=== PATIENT | male | born 1945 | race Caucasian/White ===

== ENCOUNTER 2020-12-07 13:20 | Inpatient (IN) | payer MEDICARE, BC ==
[2020-12-07] MEDS ORDERED: Sodium Chloride 0.9% 10 ML Syringe FLUSH PRN (14:23)
[2020-12-07] MEDS ORDERED: Sodium Chloride 0.9% 1,000 ML IV ONE ×2 (14:23→16:54)
--- NOTE | 2020-12-07 14:25 | EDM.PDOC ---
ED HPI GENERAL MEDICAL PROBLEM - General Chief Complaint: Possible Sepsis Stated Complaint: URINATION URGENCY/RETENTION Time Seen by Provider: 12/07/20 14:10 Source of Information: Reports: Patient History Limitations: Reports: No Limitations - History of Present Illness INITIAL COMMENTS - FREE TEXT/NARRATIVE: 75 YO WM WITH PMH OF METASTATIC PANCREATIC CA WHO RECEIVED CHEMO 3 DAYS AGO PRESENTS TO ER WITH URINARY RETENTION X 2 DAYS. PT REPORTS IT BEGAN WITH DECREASED FLOW AND NOW HE IS UNABLE TO GO ON HIS OWN. INITIAL BLADDER SCAN SHOWED GREATER THAN 600CC IN BLADDER. [facility] CATH WAS PLACED FOR HIS DISCOMFORT AND PATIENT STATES HE FEELS MUCH BETTER. OF NOTE, PT HAD A BP OF 80s/50s UPON ARRIVAL. PT REPORTS FEELING LIGHTHEADED. PT DENIES ANY FEVER/CHILLS, SHORTNESS OF BREATH, NO CHEST PAIN, NO NAUSEA/VOMITING/DIARRHEA. PT DENIES ANY DISCOMFORT- NO HEADACHE OR NECK PAIN. PT APPEARS IN NAD. DAUGHTER STATES HER DAD WAS PRESCRIBED OXYCONTIN AND SHE IS CONCERNED HE MAY HAVE TAKEN TOO MUCH. PT ALERT WITHOUT EVIDENCE OF SOMNOLENCE OR OPIOID INTOXICATION. Duration: Day(s): (2) Location: Reports: Abdomen Severity: Moderate Improves with: Reports: Other ([facility] CATH) Worsens with: Reports: None Associated Symptoms: Reports: No Other Symptoms Lower Abdomen Pain Score (Numeric/FACES): 5 - Related Data Allergies Allergy/AdvReac Type Severity Reaction Status Date / Time No Known Drug Allergies Allergy Cannot Verified 12/07/20 16:12 Remember Home Meds: Home Meds Ascorbate Calcium [Vitamin C] 500 mg PO DAILY 12/10/15 [History] Aspirin 325 mg PO BEDTIME 12/10/15 [History] Lisinopril/Hydrochlorothiazide [Lisinopril-Hctz 20-12.5 mg Tab] 1 tab PO BEDTIME 12/10/15 [History] Allopurinol [Zyloprim] 300 mg PO BEDTIME 12/12/15 [History] Fish Oil/[place]-3 Fatty Acids [Fish Oil 1,000 MG] 1 gm PO DAILY cap 12/12/15 [Rx] Simvastatin [Zocor] 20 mg PO BEDTIME #30 tablet 12/12/15 [Rx] metFORMIN [Glucophage] 500 mg PO BIDMEALS #60 tablet 12/12/15 [Rx] Past Medical History HEENT History: Reports: Impaired Vision Cardiovascular History: Reports: Hypertension Gastrointestinal History: Reports: Hiatal Hernia Endocrine/Metabolic History: Reports: Diabetes, Type II, Obesity/BMI 30+ - Infectious Disease History Infectious Disease History: Reports: Chicken Pox, Measles, Mumps, Other (See Below) Other Infectious Disease History: West Nile 9 years ago. - Past Surgical History Musculoskeletal Surgical History: Reports: Knee Replacement Social & Family History - Family History HEENT: Reports: Other (See Below) Other HEENT Family History: Some cataract surgery. Cardiac: Reports: GA Endocrine/Metabolic: Reports: Diabetes, type II Oncologic: Reports: Pancreatic - Caffeine Use Caffeine Use: Reports: Coffee, Soda Caffeine Use Comment: 1 soda every other day. ED ROS GENERAL - Review of Systems Review Of Systems: See Below Constitutional: Reports: Malaise HEENT: Reports: No Symptoms Respiratory: Reports: No Symptoms Cardiovascular: Reports: No Symptoms Endocrine: Reports: No Symptoms GI/Abdominal: Reports: Abdominal Pain : Reports: Urgency, Urinary Retention Musculoskeletal: Reports: No Symptoms Skin: Reports: No Symptoms Neurological: Reports: Dizziness Psychiatric: Reports: No Symptoms Hematologic/Lymphatic: Reports: No Symptoms Immunologic: Reports: No Symptoms ED EXAM, SEPSIS - Physical Exam Exam: See Below Exam Limited By: No Limitations General Appearance: Alert, WD/WN, No Apparent Distress Throat/Mouth: Normal Inspection, Normal Lips, Normal Teeth, Normal Gums, Normal Oropharynx, Normal Voice, No Airway Compromise Head: Atraumatic, Normocephalic Neck: Normal Inspection, Supple, Non-Tender, Full Range of Motion Respiratory/Chest: No Respiratory Distress, Lungs Clear, Normal Breath Sounds, No Accessory Muscle Use, Chest Non-Tender Cardiovascular: Normal Peripheral Pulses, Regular Rate, Rhythm, No Edema, No Gallop, No JVD, No Murmur, No Rub GI/Abdominal Exam: Normal Bowel Sounds, Soft, Non-Tender, No Organomegaly, No Distention, No Abnormal Bruit, No Mass, Pelvis Stable Back: Normal Inspection, Full Range of Motion, NT Extremities: Normal Inspection, Normal Range of Motion, Non-Tender, No Pedal Edema, Normal Capillary Refill Neurological: Alert, Oriented, CN II-XII Intact, Normal Cognition, Normal Gait, No Motor/Sensory Deficits Psychiatric: Normal Affect, Normal Mood Skin: Warm, Dry, Intact, Normal Color, No Rash Course - Vital Signs Last Recorded V/S: Last Vital Signs Temp 98.3 F 12/07/20 13:30 Pulse 94 12/07/20 13:30 Resp 20 12/07/20 13:30 BP 87/54 L 12/07/20 15:38 Pulse Ox 90 L 12/07/20 13:30 - Orders/Labs/Meds Orders: Active Orders 24 hr Category Date Time Status Patient Status Manage Transfer [TRANSFER] Routine ADT 12/07/20 16:41 Active Patient Status [ADT] Routine ADT 12/07/20 16:42 Ordered Blood Pressure Mgt: Sepsis [RC] Q15MX2 Care 12/07/20 14:24 Active Cardiac Monitoring [RC] CONTINUOUS Care 12/07/20 14:24 Active Oxygen Therapy [RC] PRN Care 12/07/20 16:42 Ordered Up With Assistance [RC] ASDIRECTED Care 12/07/20 16:42 Ordered VTE/DVT Education [RC] PER UNIT ROUTINE Care 12/07/20 16:42 Ordered Vital Signs [RC] Q4H Care 12/07/20 16:42 Ordered Heart Healthy Diet [DIET] Diet 12/07/20 Dinner Ordered CULTURE BLOOD [BC] Stat Lab 12/07/20 15:00 Received CULTURE BLOOD [BC] Stat Lab 12/07/20 15:10 Received REFLEX LACTIC ACID YES OR NO [CHEM] Routine Lab 12/07/20 15:44 Received Sodium Chloride 0.9% [Saline Flush] Med 12/07/20 14:23 Active 10 ml FLUSH Q8HR PRN Vancomycin 1 gm Med 12/07/20 15:54 Active Sodium Chloride 0.9% [Normal Saline] 250 ml IV ONETIME Blood Culture x2 Reflex Set [OM.PC] Stat Oth 12/07/20 14:23 Ordered Saline Lock Insert [OM.PC] Stat Oth 12/07/20 14:23 Ordered Severe Sepsis Onset Time [OM.PC] Stat Oth 12/07/20 14:23 Ordered Resuscitation Status Routine Resus Stat 12/07/20 16:42 Ordered Medication Orders Vancomycin HCl 1 gm/ Sodium (Chloride) 250 mls @ 167 mls/hr IV ONETIME ONE Stop: 12/07/20 17:23 Sodium Chloride (Sodium Chloride 0.9% 10 Ml Syringe) 10 ml FLUSH Q8HR PRN PRN Reason: keep vein open Labs: Laboratory Tests 1012/07/20 12/07/20 Range/Units 14:00 14:00 14:10 WBC 3.56 L (5.00-10.00) 10^3/uL RBC 3.36 L (4.50-6.00) 10^6/uL Hgb 10.4 L (13.0-17.0) g/dL Hct 31.7 L (40.0-52.0) % MCV 94.3 H D (82.0-92.0) fL MCH 31.0 (27.0-31.0) pg MCHC 32.8 (32.0-36.0) g/dL RDW 14.6 H (11.5-14.5) % Plt Count 155 (150-400) 10^3/uL MPV 10.8 H (7.4-10.4) fL Immature Gran % (Auto) 0.3 (0.0-5.0) % Neut % (Auto) 49.1 L (50.0-70.0) % Lymph % (Auto) 37.4 (20.0-40.0) % Wilkes % (Auto) 9.6 H (2.0-8.0) % Eos % (Auto) 2.8 (1.0-3.0) % Baso % (Auto) 0.8 (0.0-1.0) % Neut # (Auto) 1.75 L (2.50-7.00) 10^3/uL Lymph # (Auto) 1.33 (1.00-4.00) 10^3/uL Wilkes # (Auto) 0.34 (0.10-0.80) 10^3/uL Eos # (Auto) 0.10 (0.10-0.30) 10^3/uL Baso # (Auto) 0.03 (0.00-0.10) 10^3/uL Immature Gran # (Auto) 0.01 (0.00-0.50) 10^3/uL Sodium 142 (136-145) mmol/L Potassium 3.9 (3.5-5.1) mmol/L Chloride 103 (98-107) mmol/L Carbon Dioxide 26.6 (21.0-32.0) mmol/L Anion Gap 16.3 H (5-15) mmol/L BUN 40 H (7-18) mg/dL Creatinine 1.26 H (0.51-1.17) mg/dL Est Cr Clr Drug Dosing TNP Estimated GFR (MDRD) 56 mL/min Glucose 104 (70-140) mg/dL Lactic Acid (0.4-2.0) mmol/L Calcium 8.8 (8.7-10.3) mg/dL Total Bilirubin 1.1 H (0.2-1.0) mg/dL AST 44 H (15-37) U/L ALT 42 (14-63) U/L Alkaline Phosphatase 186 H (46-116) U/L Total Protein 7.2 (6.4-8.2) g/dL Albumin 2.80 L (3.40-5.00) g/dL Specimen Type Urinfol Urine Color Yellow (YELLOW) Urine Appearance Slightly cloudy H (CLEAR) Urine pH 5.5 (5.0-9.0) Ur Specific [place] 1.020 (1.005-1.030) Urine Protein Trace H (NEGATIVE) mg/dL Urine Glucose (UA) Negative (NEGATIVE) mg/dL Urine Ketones Negative (NEGATIVE) mg/dL Urine Occult Blood Negative (NEGATIVE) Urine Nitrite Negative (NEGATIVE) Urine Bilirubin Negative (NEGATIVE) Urine Urobilinogen 0.2 (0.2-1.0) E.U./dL Ur Leukocyte Esterase Negative (NEGATIVE) U Hyaline Cast (Auto) Rare Urine RBC 0-5 (0-5) /HPF Urine WBC 0-5 (0-5) /HPF Ur Epithelial Cells Occasional /LPF Amorphous Sediment Occasional (0/HPF) /HPF Urine Bacteria Not seen (NONE TO FEW) /HPF SARS CoV-2 RNA Rapid JENNIFER (NEGATIVE) 12/07/20 12/07/20 Range/Units 15:00 15:50 WBC (5.00-10.00) 10^3/uL RBC (4.50-6.00) 10^6/uL Hgb (13.0-17.0) g/dL Hct (40.0-52.0) % MCV (82.0-92.0) fL MCH (27.0-31.0) pg MCHC (32.0-36.0) g/dL RDW (11.5-14.5) % Plt Count (150-400) 10^3/uL MPV (7.4-10.4) fL Immature Gran % (Auto) (0.0-5.0) % Neut % (Auto) (50.0-70.0) % Lymph % (Auto) (20.0-40.0) % Wilkes % (Auto) (2.0-8.0) % Eos % (Auto) (1.0-3.0) % Baso % (Auto) (0.0-1.0) % Neut # (Auto) (2.50-7.00) 10^3/uL Lymph # (Auto) (1.00-4.00) 10^3/uL Wilkes # (Auto) (0.10-0.80) 10^3/uL Eos # (Auto) (0.10-0.30) 10^3/uL Baso # (Auto) (0.00-0.10) 10^3/uL Immature Gran # (Auto) (0.00-0.50) 10^3/uL Sodium (136-145) mmol/L Potassium (3.5-5.1) mmol/L Chloride (98-107) mmol/L Carbon Dioxide (21.0-32.0) mmol/L Anion Gap (5-15) mmol/L BUN (7-18) mg/dL Creatinine (0.51-1.17) mg/dL Est Cr Clr Drug Dosing Estimated GFR (MDRD) mL/min Glucose (70-140) mg/dL Lactic Acid 4.5 H (0.4-2.0) mmol/L Calcium (8.7-10.3) mg/dL Total Bilirubin (0.2-1.0) mg/dL AST (15-37) U/L ALT (14-63) U/L Alkaline Phosphatase (46-116) U/L Total Protein (6.4-8.2) g/dL Albumin (3.40-5.00) g/dL Specimen Type Urine Color (YELLOW) Urine Appearance (CLEAR) Urine pH (5.0-9.0) Ur Specific [place] (1.005-1.030) Urine Protein (NEGATIVE) mg/dL Urine Glucose (UA) (NEGATIVE) mg/dL Urine Ketones (NEGATIVE) mg/dL Urine Occult Blood (NEGATIVE) Urine Nitrite (NEGATIVE) Urine Bilirubin (NEGATIVE) Urine Urobilinogen (0.2-1.0) E.U./dL Ur Leukocyte Esterase (NEGATIVE) U Hyaline Cast (Auto) Urine RBC (0-5) /HPF Urine WBC (0-5) /HPF Ur Epithelial Cells /LPF Amorphous Sediment (0/HPF) /HPF Urine Bacteria (NONE TO FEW) /HPF SARS CoV-2 RNA Rapid JENNIFER Negative (NEGATIVE) Meds: Medications Generic Name Dose Route Start Last Admin Trade Name Freq PRN Reason Stop Dose Admin Vancomycin HCl 1 gm/ Sodium 250 mls @ 167 mls/hr 12/07/20 15:54 Chloride IV 12/07/20 17:23 ONETIME ONE Sodium Chloride 10 ml 12/07/20 14:23 Sodium Chloride 0.9% 10 Ml Syringe FLUSH Q8HR PRN keep vein open Discontinued Medications Generic Name Dose Route Start Last Admin Trade Name Freq PRN Reason Stop Dose Admin Ceftriaxone Sodium 2 gm 12/07/20 15:54 Ceftriaxone 2 Gm Vial IVPUSH 12/07/20 15:55 ONETIME ONE Sodium Chloride 1,000 mls @ 1,000 mls/hr 12/07/20 14:23 12/07/20 14:45 Normal Saline IV 12/07/20 15:22 1,000 mls/hr BOLUS ONE Administration Protocol Sodium Chloride Confirm 12/07/20 16:37 12/07/20 16:41 Normal Saline Administered 12/07/20 16:38 Not Given Dose 100 mls @ as directed .ROUTE .STK-MED ONE Sodium Chloride Confirm 12/07/20 16:38 12/07/20 16:39 Normal Saline Administered 12/07/20 16:39 Not Given Dose 1,000 mls @ as directed .ROUTE .STK-MED ONE - Radiology Interpretation Free Text/Narrative:: CXR- NAD Departure - Departure Time of Disposition: 16:43 Disposition: Admitted As Inpatient 66 Condition: Serious Clinical Impression: Hypotension, Urinary retention, Sepsis associated hypotension - Discharge Information Referrals: Kristy Kraft NP [Primary Care Provider] - Forms: ED Department Discharge Sepsis Event Note (ED) - Focused Exam Vital Signs: Vital Signs Temp Pulse Resp BP Pulse Ox 12/07/20 15:38 87/54 L 12/07/20 13:30 98.3 F 94 20 87/54 L 90 L - My Orders Last 24 Hours: My Active Orders 12/07/20 14:23 Sodium Chloride 0.9% [Saline Flush] 10 ml FLUSH Q8HR PRN Blood Culture x2 Reflex Set [OM.PC] Stat Saline Lock Insert [OM.PC] Stat Severe Sepsis Onset Time [OM.PC] Stat 12/07/20 14:24 Blood Pressure Mgt: Sepsis [RC] Q15MX2 Cardiac Monitoring [RC] CONTINUOUS 12/07/20 15:00 CULTURE BLOOD [BC] Stat 12/07/20 15:10 CULTURE BLOOD [BC] Stat 12/07/20 15:44 REFLEX LACTIC ACID YES OR NO [CHEM] Routine 12/07/20 15:54 Vancomycin 1 gm Sodium Chloride 0.9% [Normal Saline] 250 ml IV ONETIME 12/07/20 16:41 Patient Status Manage Transfer [TRANSFER] Routine 12/07/20 16:42 Patient Status [ADT] Routine Oxygen Therapy [RC] PRN Up With Assistance [RC] ASDIRECTED VTE/DVT Education [RC] PER UNIT ROUTINE Vital Signs [RC] Q4H Resuscitation Status Routine 12/07/20 Dinner Heart Healthy Diet [DIET] - Assessment/Plan Last 24 Hours: My Active Orders 12/07/20 14:23 Sodium Chloride 0.9% [Saline Flush] 10 ml FLUSH Q8HR PRN Blood Culture x2 Reflex Set [OM.PC] Stat Saline Lock Insert [OM.PC] Stat Severe Sepsis Onset Time [OM.PC] Stat 12/07/20 14:24 Blood Pressure Mgt: Sepsis [RC] Q15MX2 Cardiac Monitoring [RC] CONTINUOUS 12/07/20 15:00 CULTURE BLOOD [BC] Stat 12/07/20 15:10 CULTURE BLOOD [BC] Stat 12/07/20 15:44 REFLEX LACTIC ACID YES OR NO [CHEM] Routine 12/07/20 15:54 Vancomycin 1 gm Sodium Chloride 0.9% [Normal Saline] 250 ml IV ONETIME 12/07/20 16:41 Patient Status Manage Transfer [TRANSFER] Routine 12/07/20 16:42 Patient Status [ADT] Routine Oxygen Therapy [RC] PRN Up With Assistance [RC] ASDIRECTED VTE/DVT Education [RC] PER UNIT ROUTINE Vital Signs [RC] Q4H Resuscitation Status Routine 12/07/20 Dinner Heart Healthy Diet [DIET] Assessment:: 1. URINARY RETENTION 2. HYPOTENSION IN AN IMMUNOCOMPROMISED PATIENT 3. ELEVATED LACTIC ACID- RULE OUT BACTEREMIA Plan: ADMIT TO MEDICINE- [facility] ACCEPTED @ CONTINUE AGGRESSIVE IVF HYDRATION ROCEPHIN/VANCOMYCIN NOW SUPPORTIVE CARE ADDITIONAL ORDERS PER MEDICINE
--- NOTE | 2020-12-07 15:00 | CR ---
[id number] RAD/RAD Chest PA or AP 1V EXAM: RAD Chest PA or AP 1V INDICATION: SEPSIS. COMPARISON: December 10, 2015. DISCUSSION: Right chest wall Mediport. Cardiomediastinal silhouette is normal in size and contour. No infiltrate, effusion, pneumothorax, or edema. Low lung volumes associated vascular crowding. Degenerative changes of the shoulders bilaterally. IMPRESSION: No acute cardiopulmonary abnormality. Guzman Hampton DO 12/07/20 [id number] Thank you for allowing us to participate in the care of your patient.
[2020-12-07 15:03] LABS: ANION GAP 16.3 mmol/L (5-15); CHLORIDE,CL 103 mmol/L (98-107); SODIUM,NA 142 mmol/L (136-145)
[2020-12-07] MEDS ORDERED: cefTRIAXone 2 GM Vial IVPUSH ONE (15:54)
[2020-12-07] MEDS ORDERED: Sodium Chloride 0.9% 100 ML ONE (16:37)
[2020-12-07] MEDS ORDERED: Sodium Chloride 0.9% 1,000 ML ONE (16:38)
--- NOTE | 2020-12-07 17:22 | PCM.HP.2 ---
H&P History of Present Illness - General Date of Service: 12/07/20 Admit Problem/Dx: Admission Diagnosis/Problem Admission Diagnosis/Problem Sepsis - History of Present Illness Initial Comments - Free Text/Narative: 75 year old male presents with ten days of urinary hesitancy that worsened over the last couple of days to where he was unable to void. Lower Abdomen Pain Score (Numeric/FACES): 5 - Related Data Allergies/Adverse Reactions: Allergies Allergy/AdvReac Type Severity Reaction Status Date / Time No Known Drug Allergies Allergy Cannot Verified 12/07/20 16:12 Remember Home Medications: Home Meds Ascorbate Calcium [Vitamin C] 500 mg PO DAILY 12/10/15 [History] Aspirin 325 mg PO BEDTIME 12/10/15 [History] Lisinopril/Hydrochlorothiazide [Lisinopril-Hctz 20-12.5 mg Tab] 1 tab PO BEDTIME 12/10/15 [History] Allopurinol [Zyloprim] 300 mg PO BEDTIME 12/12/15 [History] Fish Oil/Lodge-3 Fatty Acids [Fish Oil 1,000 MG] 1 gm PO DAILY cap 12/12/15 [Rx] Simvastatin [Zocor] 20 mg PO BEDTIME #30 tablet 12/12/15 [Rx] metFORMIN [Glucophage] 500 mg PO BIDMEALS #60 tablet 12/12/15 [Rx] Past Medical History HEENT History: Reports: Impaired Vision Cardiovascular History: Reports: Hypertension Gastrointestinal History: Reports: Hiatal Hernia Genitourinary History: Reports: BPH Endocrine/Metabolic History: Reports: Diabetes, Type II - Infectious Disease History Infectious Disease History: Reports: Chicken Pox, Measles, Mumps, Other (See Below) Other Infectious Disease History: West Nile 9 years ago. - Past Surgical History Musculoskeletal Surgical History: Reports: Knee Replacement Social & Family History - Family History HEENT: Reports: Other (See Below) Other HEENT Family History: Some cataract surgery. Cardiac: Reports: [place] Endocrine/Metabolic: Reports: Diabetes, type II Oncologic: Reports: Pancreatic - Tobacco Use Tobacco Use Status *Q: Never Tobacco User - Caffeine Use Caffeine Use: Reports: Coffee Caffeine Use Comment: 1 soda every other day. - Recreational Drug Use Recreational Drug Use: No H&P Review of Systems - Review of Systems: Review Of Systems: See Below General: Reports: Chills, Fatigue, Decreased Appetite, Weight Loss. Denies: Fever, Weakness HEENT: Denies: Dysphasia, Headaches, Sinus Congestion, Sore Throat, Visual Changes Pulmonary: Denies: Shortness of Breath, Wheezing, Cough Cardiovascular: Denies: Chest Pain, Palpitations, Edema, Lightheadedness Gastrointestinal: Reports: Abdominal Pain (suprapubic pain), Constipation (chronic, did have BM yesterday), Decreased Appetite. Denies: Bloody Stool, Diarrhea, Melena, Nausea, Vomiting Genitourinary: Reports: Frequency, Urgency, Retention. Denies: Incontinence, Hematuria Musculoskeletal: Denies: Neck Pain, Back Pain, Joint Pain, Joint Swelling Skin: Denies: Pallor, Dryness, Rash Psychiatric: Reports: Confusion ("brain fog"), Hallucinations (stated as feeling like someone is watching him since chemo). Denies: Depression, Anxiety Neurological: Reports: Confusion ("brain fog"), Dizziness (at times). Denies: Headache, Trouble Speaking, Difficulty Walking, Change in Speech, Gait Disturbance Exam - Exam Exam: See Below - Vital Signs Vital Signs: Last Vital Signs Temp 36.8 C 12/07/20 13:30 Pulse 88 12/07/20 16:50 Resp 20 12/07/20 16:50 BP 110/72 12/07/20 16:50 Pulse Ox 95 12/07/20 16:50 Weight: 91.626 kg - Exam Physical Exam Comments:: GENERAL: Well-appearing adult in no acute distress. HEENT: Normocephalic, atraumatic. Conjunctiva clear. Nares patent without discharge. Mucous membranes moist, posterior pharynx unremarkable. NECK: Supple, no masses. CV: Regular rate and irregular rhythm, 2+ systolic murmur, no rubs or gallops. 2+ radial pulses. PULMONARY: Normal effort, clear to auscultation bilaterally, no wheezes, rales, or rhonchi. ABDOMEN: Positive bowel sounds, soft, nontender, nondistended. Patient has pain when he leans forward in the suprapubic area EXTREMITIES: Trace RLE, 1+ LLE edema, no cyanosis or clubbing. MUSCULOSKELETAL: Moves all extremities well. NEUROLOGICAL: No obvious deficits. DERMATOLOGIC: No rashes or suspicious lesions in exposed areas. PSYCHIATRIC: Alert, interactive, appropriate affect. - Patient Data Lab Results Last 24 hrs: Laboratory Results - last 24 hr 12/07/20 12/07/20 12/07/20 Range/Units 14:00 14:00 14:10 WBC 3.56 L (5.00-10.00) 10^3/uL RBC 3.36 L (4.50-6.00) 10^6/uL Hgb 10.4 L (13.0-17.0) g/dL Hct 31.7 L (40.0-52.0) % MCV 94.3 H D (82.0-92.0) fL MCH 31.0 (27.0-31.0) pg MCHC 32.8 (32.0-36.0) g/dL RDW 14.6 H (11.5-14.5) % Plt Count 155 (150-400) 10^3/uL MPV 10.8 H (7.4-10.4) fL Immature Gran % (Auto) 0.3 (0.0-5.0) % Neut % (Auto) 49.1 L (50.0-70.0) % Lymph % (Auto) 37.4 (20.0-40.0) % [place] % (Auto) 9.6 H (2.0-8.0) % Eos % (Auto) 2.8 (1.0-3.0) % Baso % (Auto) 0.8 (0.0-1.0) % Neut # (Auto) 1.75 L (2.50-7.00) 10^3/uL Lymph # (Auto) 1.33 (1.00-4.00) 10^3/uL [place] # (Auto) 0.34 (0.10-0.80) 10^3/uL Eos # (Auto) 0.10 (0.10-0.30) 10^3/uL Baso # (Auto) 0.03 (0.00-0.10) 10^3/uL Immature Gran # (Auto) 0.01 (0.00-0.50) 10^3/uL Sodium 142 (136-145) mmol/L Potassium 3.9 (3.5-5.1) mmol/L Chloride 103 (98-107) mmol/L Carbon Dioxide 26.6 (21.0-32.0) mmol/L Anion Gap 16.3 H (5-15) mmol/L BUN 40 H (7-18) mg/dL Creatinine 1.26 H (0.51-1.17) mg/dL Est Cr Clr Drug Dosing TNP Estimated GFR (MDRD) 56 mL/min Glucose 104 (70-140) mg/dL Lactic Acid (0.4-2.0) mmol/L Calcium 8.8 (8.7-10.3) mg/dL Total Bilirubin 1.1 H (0.2-1.0) mg/dL AST 44 H (15-37) U/L ALT 42 (14-63) U/L Alkaline Phosphatase 186 H (46-116) U/L Total Protein 7.2 (6.4-8.2) g/dL Albumin 2.80 L (3.40-5.00) g/dL Specimen Type Urinfol Urine Color Yellow (YELLOW) Urine Appearance Slightly cloudy H (CLEAR) Urine pH 5.5 (5.0-9.0) Ur Specific [place] 1.020 (1.005-1.030) Urine Protein Trace H (NEGATIVE) mg/dL Urine Glucose (UA) Negative (NEGATIVE) mg/dL Urine Ketones Negative (NEGATIVE) mg/dL Urine Occult Blood Negative (NEGATIVE) Urine Nitrite Negative (NEGATIVE) Urine Bilirubin Negative (NEGATIVE) Urine Urobilinogen 0.2 (0.2-1.0) E.U./dL Ur Leukocyte Esterase Negative (NEGATIVE) U Hyaline Cast (Auto) Rare Urine RBC 0-5 (0-5) /HPF Urine WBC 0-5 (0-5) /HPF Ur Epithelial Cells Occasional /LPF Amorphous Sediment Occasional (0/HPF) /HPF Urine Bacteria Not seen (NONE TO FEW) /HPF SARS CoV-2 RNA Rapid JENNIFER (NEGATIVE) 12/07/20 12/07/20 Range/Units 15:00 15:50 WBC (5.00-10.00) 10^3/uL RBC (4.50-6.00) 10^6/uL Hgb (13.0-17.0) g/dL Hct (40.0-52.0) % MCV (82.0-92.0) fL MCH (27.0-31.0) pg MCHC (32.0-36.0) g/dL RDW (11.5-14.5) % Plt Count (150-400) 10^3/uL MPV (7.4-10.4) fL Immature Gran % (Auto) (0.0-5.0) % Neut % (Auto) (50.0-70.0) % Lymph % (Auto) (20.0-40.0) % [place] % (Auto) (2.0-8.0) % Eos % (Auto) (1.0-3.0) % Baso % (Auto) (0.0-1.0) % Neut # (Auto) (2.50-7.00) 10^3/uL Lymph # (Auto) (1.00-4.00) 10^3/uL [place] # (Auto) (0.10-0.80) 10^3/uL Eos # (Auto) (0.10-0.30) 10^3/uL Baso # (Auto) (0.00-0.10) 10^3/uL Immature Gran # (Auto) (0.00-0.50) 10^3/uL Sodium (136-145) mmol/L Potassium (3.5-5.1) mmol/L Chloride (98-107) mmol/L Carbon Dioxide (21.0-32.0) mmol/L Anion Gap (5-15) mmol/L BUN (7-18) mg/dL Creatinine (0.51-1.17) mg/dL Est Cr Clr Drug Dosing Estimated GFR (MDRD) mL/min Glucose (70-140) mg/dL Lactic Acid 4.5 H (0.4-2.0) mmol/L Calcium (8.7-10.3) mg/dL Total Bilirubin (0.2-1.0) mg/dL AST (15-37) U/L ALT (14-63) U/L Alkaline Phosphatase (46-116) U/L Total Protein (6.4-8.2) g/dL Albumin (3.40-5.00) g/dL Specimen Type Urine Color (YELLOW) Urine Appearance (CLEAR) Urine pH (5.0-9.0) Ur Specific [place] (1.005-1.030) Urine Protein (NEGATIVE) mg/dL Urine Glucose (UA) (NEGATIVE) mg/dL Urine Ketones (NEGATIVE) mg/dL Urine Occult Blood (NEGATIVE) Urine Nitrite (NEGATIVE) Urine Bilirubin (NEGATIVE) Urine Urobilinogen (0.2-1.0) E.U./dL Ur Leukocyte Esterase (NEGATIVE) U Hyaline Cast (Auto) Urine RBC (0-5) /HPF Urine WBC (0-5) /HPF Ur Epithelial Cells /LPF Amorphous Sediment (0/HPF) /HPF Urine Bacteria (NONE TO FEW) /HPF SARS CoV-2 RNA Rapid JENNIFER Negative (NEGATIVE) Result Diagrams: 12/07/20 14:00 12/07/20 14:00 Sepsis Event Note - Evaluation Sepsis Screening Result: No Definite Risk - Focused Exam Vital Signs: Vital Signs Temp Pulse Resp BP Pulse Ox 12/07/20 16:50 88 20 110/72 95 12/07/20 15:38 87/54 L 12/07/20 13:30 36.8 C 94 20 87/54 L 90 L Problem List Initiated/Reviewed/Updated: Yes Orders Last 24hrs: Active Orders 24 hr Category Date Time Status Patient Status Manage Transfer [TRANSFER] Routine ADT 12/07/20 16:41 Active Patient Status [ADT] Routine ADT 12/07/20 16:42 Active Blood Pressure Mgt: Sepsis [RC] [id number] Care 12/07/20 14:24 Active Cardiac Monitoring [RC] CONTINUOUS Care 12/07/20 14:24 Active Oxygen Therapy [RC] PRN Care 12/07/20 16:42 Active Up With Assistance [RC] ASDIRECTED Care 12/07/20 16:42 Active VTE/DVT Education [RC] PER UNIT ROUTINE Care 12/07/20 16:42 Active Vital Signs [RC] Q4H Care 12/07/20 16:42 Active Heart Healthy Diet [DIET] Diet 12/07/20 Dinner Active CULTURE BLOOD [BC] Stat Lab 12/07/20 15:00 Received CULTURE BLOOD [BC] Stat Lab 12/07/20 15:10 Received REFLEX LACTIC ACID YES OR NO [CHEM] Routine Lab 12/07/20 15:44 Received Sodium Chloride 0.9% [Normal Saline] 1,000 ml Med 12/07/20 16:54 Active IV .BOLUS Sodium Chloride 0.9% [Saline Flush] Med 12/07/20 14:23 Active 10 ml FLUSH Q8HR PRN Vancomycin 1 gm Med 12/07/20 15:54 Active Sodium Chloride 0.9% [Normal Saline] 250 ml IV ONETIME Blood Culture x2 Reflex Set [OM.PC] Stat Oth 12/07/20 14:23 Ordered Saline Lock Insert [OM.PC] Stat Oth 12/07/20 14:23 Ordered Severe Sepsis Onset Time [OM.PC] Stat Oth 12/07/20 14:23 Ordered Resuscitation Status Routine Resus Stat 12/07/20 16:42 Ordered Medication Orders Vancomycin HCl 1 gm/ Sodium (Chloride) 250 mls @ 167 mls/hr IV ONETIME ONE Stop: 12/07/20 17:23 Sodium Chloride (Normal Saline) 1,000 mls @ 999 mls/hr IV .BOLUS ONE Stop: 12/07/20 17:54 Last Admin: 12/07/20 16:59 Dose: 999 mls/hr Documented by: FLORINDA Sodium Chloride (Sodium Chloride 0.9% 10 Ml Syringe) 10 ml FLUSH Q8HR PRN PRN Reason: keep vein open Assessment/Plan Comment:: HPI summary: 75 year old male admitted inpatient for possible sepsis after presenting to the ED via personal car with complaints of urinary retention for two days prior to presentation, patient reports symptoms have been present for approximately ten days but have worsened. Received chemo three days ago for metastatic CA without known source. Denies fever. Did have chills, but reports this a cold intolerance since chemo. Denies dyspnea, chest pain or N/V/D. He does have chronic constipation and he reports he took a powder with results yesterday (12/06/2020). Recent use of oxycodone and daughter reports patient may have taken too much, but patient did not appear somnolent in the ED, and daughter reports improvement since starting fluids. ED course: -VS: 98.3-94-20-87/54-90%/RA -Lab: WBC 3.56, RBC 3.36, Hgb 10.4, Hct 31.7, macrocytic, normochromic, neut 49.1% (L), mono 9.6% (H), plt 155, NA 142, K 3.9, Cl 103, anion gap 16.3, BUN 40, creatinine 1.26, gfr 56, Tbili 1.1, AST 44, ALT 42, alk phos 186, albumin 2.8 (L); COVID neg, lactic 4.5 -Urine: slightly cloudy, trace protein, neg blood, neg nitrites, rare hyaline casts, 0-5 RBC, 0-5 WBC, occ epithelial cells, occ amorphous sediment, no bacteria -CXR: neg -BCx2 -NS 1 liter bolus IV -Ceftriaxone 2gm IVP and Vancomycin IV Hospitalization problems and plan: # Hypotension - IVF NS 125mL/hr - hold lisinopril/ HCTZ - hold oxycodone for now # Elevated lactic acid, R/O bacteremia - Repeat lactic acid at 1900 - Vanco and ceftriaxone - Blood cultures and procalcitonin pending # Urinary retention - Christie catheter - I/O # Acute kidney injury, suspect prerenal cause with hypotension - hold metformin for now - IV hydration Chronic, stable conditions: # Essential hypertension, hold lisinopril/hctz # Non-ST elevation [place] (NSTEMI): no heart failure; last ECHO 04/2020 EF 65%, Normal LV systolic function, unable to assess for diastolic dysfunction; continue ASA # Moderate aortic stenosis # Hemispheric carotid artery syndrome # Hyperlipidemia, continue statin # TIA (transient ischemic attack) # Diabetes type 2, uncontrolled: start blood glucose checks and PRN low dose SS, hold metformin for now # 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
[2020-12-07] MEDS ORDERED: Glucagon,Human Recombinant 1 MG Vial IM PRN (18:43)
[2020-12-07] MEDS ORDERED: 50% Dextrose in Water 50 ML Syringe IVPUSH PRN (18:43)
[2020-12-07] MEDS: Acetaminophen 325 MG Tab PO PRN (19:49)
[2020-12-07] MEDS: Sodium Chloride 0.9% 1,000 ML IV SCH (20:16)
[2020-12-07] MEDS: Aspirin 325 MG Tab.EC PO SCH (20:18)
[2020-12-07] MEDS: Simvastatin 20 MG Tab PO SCH (20:18)
[2020-12-07] MEDS: Allopurinol 100 MG Tab PO SCH (20:18)
[2020-12-07] MEDS ORDERED: Atropine 0.1 MG/ML 10 ML Syringe IVPUSH PRN (20:26)
[2020-12-07] MEDS ORDERED: Nitroglycerin 0.4 MG Tab.SL SL PRN (20:26)
[2020-12-07] MEDS ORDERED: EPINEPHrine 1:10,000 1 MG/10 ML Syringe IVPUSH PRN (20:26)
[2020-12-07] MEDS ORDERED: Lidocaine 2% 100 MG/5 ML Syringe IVPUSH PRN (20:26)
[2020-12-07] MEDS: Insulin Aspart 100 Units/ML 3 ML Pen SUBCUT SCH (21:29)
[2020-12-08] MEDS: Acetaminophen 325 MG Tab PO PRN ×4 (02:33→21:29)
[2020-12-08] MEDS: Sodium Chloride 0.9% 1,000 ML IV SCH ×3 (04:13→22:25)
[2020-12-08] MEDS: Insulin Aspart 100 Units/ML 3 ML Pen SUBCUT SCH ×4 (08:04→21:27)
[2020-12-08] MEDS: Ascorbic Acid 500 MG Tab PO SCH (09:31)
--- NOTE | 2020-12-08 11:34 | PCM.PN ---
- General Info Date of Service: 12/08/20 Functional Status: Reports: Tolerating Diet, Urinating, New Symptoms (bladder spasms from carmona catheter). Denies: Pain Controlled - Review of Systems General: Reports: Chills (since starting chemo). Denies: Fever, Fatigue HEENT: Reports: No Symptoms Pulmonary: Reports: No Symptoms. Denies: Shortness of Breath, Cough Cardiovascular: Reports: No Symptoms Gastrointestinal: Reports: Constipation (took miralax tuesday), Diarrhea (reports 3 loose stools since yesterday afternoon ) Genitourinary: Reports: Retention (prior to placing carmona - symptoms worse over the weekend before came to ER ), Other (bladder spasms with carmona). Denies: Dysuria Musculoskeletal: Reports: No Symptoms Skin: Reports: No Symptoms Neurological: Reports: Tingling (of the fingertips at times since starting chemo) Psychiatric: Reports: No Symptoms - Patient Data Vitals - Most Recent: Last Vital Signs Temp 96.7 F L 12/08/20 06:38 Pulse 81 12/08/20 06:38 Resp 20 12/08/20 06:38 BP 132/72 12/08/20 06:38 Pulse Ox 96 12/08/20 06:38 Weight - Most Recent: 208 lb 7 oz I&O - Last 24 Hours: Intake & Output 12/07/20 12/08/20 12/08/20 22:59 06:59 14:59 Intake Total 2699 1230 Output Total 1000 1000 Balance 1699 230 Lab Results Last 24 Hours: Laboratory Results - last 24 hr 12/07/20 12/07/20 12/07/20 Range/Units 14:00 14:00 14:10 WBC 3.56 L (5.00-10.00) 10^3/uL RBC 3.36 L (4.50-6.00) 10^6/uL Hgb 10.4 L (13.0-17.0) g/dL Hct 31.7 L (40.0-52.0) % MCV 94.3 H D (82.0-92.0) fL MCH 31.0 (27.0-31.0) pg MCHC 32.8 (32.0-36.0) g/dL RDW 14.6 H (11.5-14.5) % Plt Count 155 (150-400) 10^3/uL MPV 10.8 H (7.4-10.4) fL Immature Gran % (Auto) 0.3 (0.0-5.0) % Neut % (Auto) 49.1 L (50.0-70.0) % Lymph % (Auto) 37.4 (20.0-40.0) % [place] % (Auto) 9.6 H (2.0-8.0) % Eos % (Auto) 2.8 (1.0-3.0) % Baso % (Auto) 0.8 (0.0-1.0) % Neut # (Auto) 1.75 L (2.50-7.00) 10^3/uL Lymph # (Auto) 1.33 (1.00-4.00) 10^3/uL [place] # (Auto) 0.34 (0.10-0.80) 10^3/uL Eos # (Auto) 0.10 (0.10-0.30) 10^3/uL Baso # (Auto) 0.03 (0.00-0.10) 10^3/uL Immature Gran # (Auto) 0.01 (0.00-0.50) 10^3/uL Sodium 142 (136-145) mmol/L Potassium 3.9 (3.5-5.1) mmol/L Chloride 103 (98-107) mmol/L Carbon Dioxide 26.6 (21.0-32.0) mmol/L Anion Gap 16.3 H (5-15) mmol/L BUN 40 H (7-18) mg/dL Creatinine 1.26 H (0.51-1.17) mg/dL Est Cr Clr Drug Dosing TNP Estimated GFR (MDRD) 56 mL/min Glucose 104 (70-140) mg/dL POC Glucose (70-140) mg/dL Lactic Acid (0.4-2.0) mmol/L Calcium 8.8 (8.7-10.3) mg/dL Magnesium (1.8-2.4) mg/dL Total Bilirubin 1.1 H (0.2-1.0) mg/dL AST 44 H (15-37) U/L ALT 42 (14-63) U/L Alkaline Phosphatase 186 H (46-116) U/L C-Reactive Protein (0.0-0.9) mg/dL Total Protein 7.2 (6.4-8.2) g/dL Albumin 2.80 L (3.40-5.00) g/dL Specimen Type Urinfol Urine Color Yellow (YELLOW) Urine Appearance Slightly cloudy H (CLEAR) Urine pH 5.5 (5.0-9.0) Ur Specific [place] 1.020 (1.005-1.030) Urine Protein Trace H (NEGATIVE) mg/dL Urine Glucose (UA) Negative (NEGATIVE) mg/dL Urine Ketones Negative (NEGATIVE) mg/dL Urine Occult Blood Negative (NEGATIVE) Urine Nitrite Negative (NEGATIVE) Urine Bilirubin Negative (NEGATIVE) Urine Urobilinogen 0.2 (0.2-1.0) E.U./dL Ur Leukocyte Esterase Negative (NEGATIVE) U Hyaline Cast (Auto) Rare Urine RBC 0-5 (0-5) /HPF Urine WBC 0-5 (0-5) /HPF Ur Epithelial Cells Occasional /LPF Amorphous Sediment Occasional (0/HPF) /HPF Urine Bacteria Not seen (NONE TO FEW) /HPF SARS CoV-2 RNA Rapid JENNIFER (NEGATIVE) 12/07/20 12/07/20 12/07/20 Range/Units 15:00 15:50 17:05 WBC (5.00-10.00) 10^3/uL RBC (4.50-6.00) 10^6/uL Hgb (13.0-17.0) g/dL Hct (40.0-52.0) % MCV (82.0-92.0) fL MCH (27.0-31.0) pg MCHC (32.0-36.0) g/dL RDW (11.5-14.5) % Plt Count (150-400) 10^3/uL MPV (7.4-10.4) fL Immature Gran % (Auto) (0.0-5.0) % Neut % (Auto) (50.0-70.0) % Lymph % (Auto) (20.0-40.0) % [place] % (Auto) (2.0-8.0) % Eos % (Auto) (1.0-3.0) % Baso % (Auto) (0.0-1.0) % Neut # (Auto) (2.50-7.00) 10^3/uL Lymph # (Auto) (1.00-4.00) 10^3/uL [place] # (Auto) (0.10-0.80) 10^3/uL Eos # (Auto) (0.10-0.30) 10^3/uL Baso # (Auto) (0.00-0.10) 10^3/uL Immature Gran # (Auto) (0.00-0.50) 10^3/uL Sodium (136-145) mmol/L Potassium (3.5-5.1) mmol/L Chloride (98-107) mmol/L Carbon Dioxide (21.0-32.0) mmol/L Anion Gap (5-15) mmol/L BUN (7-18) mg/dL Creatinine (0.51-1.17) mg/dL Est Cr Clr Drug Dosing Estimated GFR (MDRD) mL/min Glucose (70-140) mg/dL POC Glucose (70-140) mg/dL Lactic Acid 4.5 H 3.5 H (0.4-2.0) mmol/L Calcium (8.7-10.3) mg/dL Magnesium (1.8-2.4) mg/dL Total Bilirubin (0.2-1.0) mg/dL AST (15-37) U/L ALT (14-63) U/L Alkaline Phosphatase (46-116) U/L C-Reactive Protein (0.0-0.9) mg/dL Total Protein (6.4-8.2) g/dL Albumin (3.40-5.00) g/dL Specimen Type Urine Color (YELLOW) Urine Appearance (CLEAR) Urine pH (5.0-9.0) Ur Specific [place] (1.005-1.030) Urine Protein (NEGATIVE) mg/dL Urine Glucose (UA) (NEGATIVE) mg/dL Urine Ketones (NEGATIVE) mg/dL Urine Occult Blood (NEGATIVE) Urine Nitrite (NEGATIVE) Urine Bilirubin (NEGATIVE) Urine Urobilinogen (0.2-1.0) E.U./dL Ur Leukocyte Esterase (NEGATIVE) U Hyaline Cast (Auto) Urine RBC (0-5) /HPF Urine WBC (0-5) /HPF Ur Epithelial Cells /LPF Amorphous Sediment (0/HPF) /HPF Urine Bacteria (NONE TO FEW) /HPF SARS CoV-2 RNA Rapid JENNIFER Negative (NEGATIVE) 12/07/20 12/07/20 12/07/20 Range/Units 17:05 20:24 22:45 WBC (5.00-10.00) 10^3/uL RBC (4.50-6.00) 10^6/uL Hgb (13.0-17.0) g/dL Hct (40.0-52.0) % MCV (82.0-92.0) fL MCH (27.0-31.0) pg MCHC (32.0-36.0) g/dL RDW (11.5-14.5) % Plt Count (150-400) 10^3/uL MPV (7.4-10.4) fL Immature Gran % (Auto) (0.0-5.0) % Neut % (Auto) (50.0-70.0) % Lymph % (Auto) (20.0-40.0) % [place] % (Auto) (2.0-8.0) % Eos % (Auto) (1.0-3.0) % Baso % (Auto) (0.0-1.0) % Neut # (Auto) (2.50-7.00) 10^3/uL Lymph # (Auto) (1.00-4.00) 10^3/uL [place] # (Auto) (0.10-0.80) 10^3/uL Eos # (Auto) (0.10-0.30) 10^3/uL Baso # (Auto) (0.00-0.10) 10^3/uL Immature Gran # (Auto) (0.00-0.50) 10^3/uL Sodium (136-145) mmol/L Potassium (3.5-5.1) mmol/L Chloride (98-107) mmol/L Carbon Dioxide (21.0-32.0) mmol/L Anion Gap (5-15) mmol/L BUN (7-18) mg/dL Creatinine (0.51-1.17) mg/dL Est Cr Clr Drug Dosing Estimated GFR (MDRD) mL/min Glucose (70-140) mg/dL POC Glucose 97 (70-140) mg/dL Lactic Acid 1.7 (0.4-2.0) mmol/L Calcium (8.7-10.3) mg/dL Magnesium (1.8-2.4) mg/dL Total Bilirubin (0.2-1.0) mg/dL AST (15-37) U/L ALT (14-63) U/L Alkaline Phosphatase (46-116) U/L C-Reactive Protein 4.1 H (0.0-0.9) mg/dL Total Protein (6.4-8.2) g/dL Albumin (3.40-5.00) g/dL Specimen Type Urine Color (YELLOW) Urine Appearance (CLEAR) Urine pH (5.0-9.0) Ur Specific [place] (1.005-1.030) Urine Protein (NEGATIVE) mg/dL Urine Glucose (UA) (NEGATIVE) mg/dL Urine Ketones (NEGATIVE) mg/dL Urine Occult Blood (NEGATIVE) Urine Nitrite (NEGATIVE) Urine Bilirubin (NEGATIVE) Urine Urobilinogen (0.2-1.0) E.U./dL Ur Leukocyte Esterase (NEGATIVE) U Hyaline Cast (Auto) Urine RBC (0-5) /HPF Urine WBC (0-5) /HPF Ur Epithelial Cells /LPF Amorphous Sediment (0/HPF) /HPF Urine Bacteria (NONE TO FEW) /HPF SARS CoV-2 RNA Rapid JENNIFER (NEGATIVE) 12/08/20 Range/Units 07:00 WBC (5.00-10.00) 10^3/uL RBC (4.50-6.00) 10^6/uL Hgb (13.0-17.0) g/dL Hct (40.0-52.0) % MCV (82.0-92.0) fL MCH (27.0-31.0) pg MCHC (32.0-36.0) g/dL RDW (11.5-14.5) % Plt Count (150-400) 10^3/uL MPV (7.4-10.4) fL Immature Gran % (Auto) (0.0-5.0) % Neut % (Auto) (50.0-70.0) % Lymph % (Auto) (20.0-40.0) % [place] % (Auto) (2.0-8.0) % Eos % (Auto) (1.0-3.0) % Baso % (Auto) (0.0-1.0) % Neut # (Auto) (2.50-7.00) 10^3/uL Lymph # (Auto) (1.00-4.00) 10^3/uL [place] # (Auto) (0.10-0.80) 10^3/uL Eos # (Auto) (0.10-0.30) 10^3/uL Baso # (Auto) (0.00-0.10) 10^3/uL Immature Gran # (Auto) (0.00-0.50) 10^3/uL Sodium (136-145) mmol/L Potassium (3.5-5.1) mmol/L Chloride (98-107) mmol/L Carbon Dioxide (21.0-32.0) mmol/L Anion Gap (5-15) mmol/L BUN (7-18) mg/dL Creatinine (0.51-1.17) mg/dL Est Cr Clr Drug Dosing Estimated GFR (MDRD) mL/min Glucose (70-140) mg/dL POC Glucose (70-140) mg/dL Lactic Acid (0.4-2.0) mmol/L Calcium (8.7-10.3) mg/dL Magnesium 1.5 L (1.8-2.4) mg/dL Total Bilirubin (0.2-1.0) mg/dL AST (15-37) U/L ALT (14-63) U/L Alkaline Phosphatase (46-116) U/L C-Reactive Protein (0.0-0.9) mg/dL Total Protein (6.4-8.2) g/dL Albumin (3.40-5.00) g/dL Specimen Type Urine Color (YELLOW) Urine Appearance (CLEAR) Urine pH (5.0-9.0) Ur Specific [place] (1.005-1.030) Urine Protein (NEGATIVE) mg/dL Urine Glucose (UA) (NEGATIVE) mg/dL Urine Ketones (NEGATIVE) mg/dL Urine Occult Blood (NEGATIVE) Urine Nitrite (NEGATIVE) Urine Bilirubin (NEGATIVE) Urine Urobilinogen (0.2-1.0) E.U./dL Ur Leukocyte Esterase (NEGATIVE) U Hyaline Cast (Auto) Urine RBC (0-5) /HPF Urine WBC (0-5) /HPF Ur Epithelial Cells /LPF Amorphous Sediment (0/HPF) /HPF Urine Bacteria (NONE TO FEW) /HPF SARS CoV-2 RNA Rapid JENNIFER (NEGATIVE) Med Orders - Current: Current Medications Acetaminophen (Acetaminophen 325 Mg Tab) 650 mg PO Q6H PRN PRN Reason: Pain Last Admin: 12/08/20 08:03 Dose: 650 mg Documented by: Allopurinol (Allopurinol 100 Mg Tab) 300 mg PO BEDTIME [facility] Last Admin: 12/07/20 20:18 Dose: 300 mg Documented by: Ascorbic Acid (Ascorbic Acid 500 Mg Tab) 500 mg PO DAILY [facility] Last Admin: 12/08/20 09:31 Dose: 500 mg Documented by: Aspirin (Aspirin 325 Mg Tab.Ec) 325 mg PO BEDTIME [facility] Last Admin: 12/07/20 20:18 Dose: 325 mg Documented by: Atropine Sulfate (Atropine 0.1 Mg/Ml 10 Ml Syringe) 0 mg IVPUSH ASDIRECTED PRN PRN Reason: Heart. Ceftriaxone Sodium (Ceftriaxone 2 Gm Vial) 2 gm IVPUSH Q24H [facility] Dextrose/Water (50% Dextrose In Water 50 Ml Syringe) 50 ml IVPUSH ASDIRECTED PRN PRN Reason: Hypoglycemia Epinephrine HCl (Epinephrine 1:10,000 1 Mg/10 Ml Syringe) 1 mg IVPUSH ASDI RECTED PRN PRN Reason: Heart. Finasteride (Finasteride 5 Mg Tab) 5 mg PO BEDTIME [facility] Glucagon (Glucagon,Human Recombinant 1 Mg Vial) 1 mg IM ASDIRECTED PRN PRN Reason: Hypoglycemia Sodium Chloride (Normal Saline) 1,000 mls @ 125 mls/hr IV ASDIRECTED [facility] Last Admin: 12/08/20 04:13 Dose: 125 mls/hr Documented by: Vancomycin HCl 1.5 gm/ Sodium (Chloride) 250 mls @ 166.667 mls/hr IV Q12H [facility] Last Admin: 12/08/20 07:26 Dose: 166.667 mls/hr Documented by: Insulin Aspart (Insulin Aspart 100 Units/Ml 3 Ml Pen) 0 unit SUBCUT WITHMEALSANDBED [facility]; Protocol Last Admin: 12/08/20 08:04 Dose: Not Given Documented by: Lidocaine HCl (Lidocaine 2% 100 Mg/5 Ml Syringe) 0 mg IVPUSH ASDIRECTED PRN PRN Reason: Heart. Nitroglycerin (Nitroglycerin 0.4 Mg Tab.Sl) 0.4 mg SL ASDIRECTED PRN PRN Reason: Heart. Oxybutynin Chloride (Oxybutynin 5 Mg Tab) 2.5 mg PO TID [facility] Simvastatin (Simvastatin 20 Mg Tab) 20 mg PO BEDTIME [facility] Last Admin: 12/07/20 20:18 Dose: 20 mg Documented by: Sodium Chloride (Sodium Chloride 0.9% 10 Ml Syringe) 10 ml FLUSH Q8HR PRN PRN Reason: keep vein open Vancomycin HCl (Pharmacy To Dose - Vancomycin) 1 dose .XX ASDIRECTED [facility] Discontinued Medications Ceftriaxone Sodium (Ceftriaxone 2 Gm Vial) 2 gm IVPUSH ONETIME ONE Stop: 12/07/20 15:55 Last Admin: 12/07/20 16:46 Dose: 2 gm Documented by: Sodium Chloride (Normal Saline) 1,000 mls @ 1,000 mls/hr IV BOLUS ONE; Protocol Stop: 12/07/20 15:22 Last Admin: 12/07/20 14:45 Dose: 1,000 mls/hr Documented by: Vancomycin HCl 1 gm/ Sodium (Chloride) 250 mls @ 167 mls/hr IV ONETIME ONE Stop: 12/07/20 17:23 Last Admin: 12/07/20 17:20 Dose: 167 mls/hr Documented by: Sodium Chloride (Normal Saline) Confirm Administered Dose 100 mls @ as directed .ROUTE .STK-MED ONE Stop: 12/07/20 16:38 Last Admin: 12/07/20 16:41 Dose: Not Given Documented by: Sodium Chloride (Normal Saline) Confirm Administered Dose 1,000 mls @ as directed .ROUTE .STK-MED ONE Stop: 12/07/20 16:39 Last Admin: 12/07/20 16:39 Dose: Not Given Documented by: Sodium Chloride (Normal Saline) 1,000 mls @ 999 mls/hr IV .BOLUS ONE Stop: 12/07/20 17:54 Last Admin: 12/07/20 16:59 Dose: 999 mls/hr Documented by: - Exam Quality Assessment: Urine Catheter. No: Supplemental Oxygen General: Alert, Oriented, Cooperative, No Acute Distress HEENT: Pupils Equal, Pupils Reactive, Mucous Membr. Moist/[place] Neck: Supple, Trachea Midline Lungs: Clear to Auscultation, Normal Respiratory Effort. No: Crackles, Rhonchi, Wheezing Cardiovascular: Regular Rate, Regular Rhythm, Murmurs GI/Abdominal Exam: Normal Bowel Sounds, Soft, Non-Tender, No Distention (Male) Exam: Deferred Back Exam: Normal Inspection, Full Range of Motion Extremities: Normal Inspection, Normal Range of Motion, Non-Tender, Normal Capillary Refill, Pedal Edema (non-pitting) Peripheral Pulses: 2+: Dorsalis Pedis (L), Dorsalis Pedis (R) Skin: Warm, Dry, Intact Neurological: No New Focal Deficit Psy/Mental Status: Alert, Normal Affect, Normal Mood - Patient Data Lab Results Last 24 hrs: Laboratory Results - last 24 hr 12/07/20 12/07/20 12/07/20 Range/Units 14:00 14:00 14:10 WBC 3.56 L (5.00-10.00) 10^3/uL RBC 3.36 L (4.50-6.00) 10^6/uL Hgb 10.4 L (13.0-17.0) g/dL Hct 31.7 L (40.0-52.0) % MCV 94.3 H D (82.0-92.0) fL MCH 31.0 (27.0-31.0) pg MCHC 32.8 (32.0-36.0) g/dL RDW 14.6 H (11.5-14.5) % Plt Count 155 (150-400) 10^3/uL MPV 10.8 H (7.4-10.4) fL Immature Gran % (Auto) 0.3 (0.0-5.0) % Neut % (Auto) 49.1 L (50.0-70.0) % Lymph % (Auto) 37.4 (20.0-40.0) % [place] % (Auto) 9.6 H (2.0-8.0) % Eos % (Auto) 2.8 (1.0-3.0) % Baso % (Auto) 0.8 (0.0-1.0) % Neut # (Auto) 1.75 L (2.50-7.00) 10^3/uL Lymph # (Auto) 1.33 (1.00-4.00) 10^3/uL [place] # (Auto) 0.34 (0.10-0.80) 10^3/uL Eos # (Auto) 0.10 (0.10-0.30) 10^3/uL Baso # (Auto) 0.03 (0.00-0.10) 10^3/uL Immature Gran # (Auto) 0.01 (0.00-0.50) 10^3/uL Sodium 142 (136-145) mmol/L Potassium 3.9 (3.5-5.1) mmol/L Chloride 103 (98-107) mmol/L Carbon Dioxide 26.6 (21.0-32.0) mmol/L Anion Gap 16.3 H (5-15) mmol/L BUN 40 H (7-18) mg/dL Creatinine 1.26 H (0.51-1.17) mg/dL Est Cr Clr Drug Dosing TNP Estimated GFR (MDRD) 56 mL/min Glucose 104 (70-140) mg/dL POC Glucose (70-140) mg/dL Lactic Acid (0.4-2.0) mmol/L Calcium 8.8 (8.7-10.3) mg/dL Magnesium (1.8-2.4) mg/dL Total Bilirubin 1.1 H (0.2-1.0) mg/dL AST 44 H (15-37) U/L ALT 42 (14-63) U/L Alkaline Phosphatase 186 H (46-116) U/L C-Reactive Protein (0.0-0.9) mg/dL Total Protein 7.2 (6.4-8.2) g/dL Albumin 2.80 L (3.40-5.00) g/dL Specimen Type Urinfol Urine Color Yellow (YELLOW) Urine Appearance Slightly cloudy H (CLEAR) Urine pH 5.5 (5.0-9.0) Ur Specific [place] 1.020 (1.005-1.030) Urine Protein Trace H (NEGATIVE) mg/dL Urine Glucose (UA) Negative (NEGATIVE) mg/dL Urine Ketones Negative (NEGATIVE) mg/dL Urine Occult Blood Negative (NEGATIVE) Urine Nitrite Negative (NEGATIVE) Urine Bilirubin Negative (NEGATIVE) Urine Urobilinogen 0.2 (0.2-1.0) E.U./dL Ur Leukocyte Esterase Negative (NEGATIVE) U Hyaline Cast (Auto) Rare Urine RBC 0-5 (0-5) /HPF Urine WBC 0-5 (0-5) /HPF Ur Epithelial Cells Occasional /LPF Amorphous Sediment Occasional (0/HPF) /HPF Urine Bacteria Not seen (NONE TO FEW) /HPF SARS CoV-2 RNA Rapid JENNIFER (NEGATIVE) 12/07/20 12/07/20 12/07/20 Range/Units 15:00 15:50 17:05 WBC (5.00-10.00) 10^3/uL RBC (4.50-6.00) 10^6/uL Hgb (13.0-17.0) g/dL Hct (40.0-52.0) % MCV (82.0-92.0) fL MCH (27.0-31.0) pg MCHC (32.0-36.0) g/dL RDW (11.5-14.5) % Plt Count (150-400) 10^3/uL MPV (7.4-10.4) fL Immature Gran % (Auto) (0.0-5.0) % Neut % (Auto) (50.0-70.0) % Lymph % (Auto) (20.0-40.0) % [place] % (Auto) (2.0-8.0) % Eos % (Auto) (1.0-3.0) % Baso % (Auto) (0.0-1.0) % Neut # (Auto) (2.50-7.00) 10^3/uL Lymph # (Auto) (1.00-4.00) 10^3/uL [place] # (Auto) (0.10-0.80) 10^3/uL Eos # (Auto) (0.10-0.30) 10^3/uL Baso # (Auto) (0.00-0.10) 10^3/uL Immature Gran # (Auto) (0.00-0.50) 10^3/uL Sodium (136-145) mmol/L Potassium (3.5-5.1) mmol/L Chloride (98-107) mmol/L Carbon Dioxide (21.0-32.0) mmol/L Anion Gap (5-15) mmol/L BUN (7-18) mg/dL Creatinine (0.51-1.17) mg/dL Est Cr Clr Drug Dosing Estimated GFR (MDRD) mL/min Glucose (70-140) mg/dL POC Glucose (70-140) mg/dL Lactic Acid 4.5 H 3.5 H (0.4-2.0) mmol/L Calcium (8.7-10.3) mg/dL Magnesium (1.8-2.4) mg/dL Total Bilirubin (0.2-1.0) mg/dL AST (15-37) U/L ALT (14-63) U/L Alkaline Phosphatase (46-116) U/L C-Reactive Protein (0.0-0.9) mg/dL Total Protein (6.4-8.2) g/dL Albumin (3.40-5.00) g/dL Specimen Type Urine Color (YELLOW) Urine Appearance (CLEAR) Urine pH (5.0-9.0) Ur Specific [place] (1.005-1.030) Urine Protein (NEGATIVE) mg/dL Urine Glucose (UA) (NEGATIVE) mg/dL Urine Ketones (NEGATIVE) mg/dL Urine Occult Blood (NEGATIVE) Urine Nitrite (NEGATIVE) Urine Bilirubin (NEGATIVE) Urine Urobilinogen (0.2-1.0) E.U./dL Ur Leukocyte Esterase (NEGATIVE) U Hyaline Cast (Auto) Urine RBC (0-5) /HPF Urine WBC (0-5) /HPF Ur Epithelial Cells /LPF Amorphous Sediment (0/HPF) /HPF Urine Bacteria (NONE TO FEW) /HPF SARS CoV-2 RNA Rapid JENNIFER Negative (NEGATIVE) 12/07/20 12/07/20 12/07/20 Range/Units 17:05 20:24 22:45 WBC (5.00-10.00) 10^3/uL RBC (4.50-6.00) 10^6/uL Hgb (13.0-17.0) g/dL Hct (40.0-52.0) % MCV (82.0-92.0) fL MCH (27.0-31.0) pg MCHC (32.0-36.0) g/dL RDW (11.5-14.5) % Plt Count (150-400) 10^3/uL MPV (7.4-10.4) fL Immature Gran % (Auto) (0.0-5.0) % Neut % (Auto) (50.0-70.0) % Lymph % (Auto) (20.0-40.0) % [place] % (Auto) (2.0-8.0) % Eos % (Auto) (1.0-3.0) % Baso % (Auto) (0.0-1.0) % Neut # (Auto) (2.50-7.00) 10^3/uL Lymph # (Auto) (1.00-4.00) 10^3/uL [place] # (Auto) (0.10-0.80) 10^3/uL Eos # (Auto) (0.10-0.30) 10^3/uL Baso # (Auto) (0.00-0.10) 10^3/uL Immature Gran # (Auto) (0.00-0.50) 10^3/uL Sodium (136-145) mmol/L Potassium (3.5-5.1) mmol/L Chloride (98-107) mmol/L Carbon Dioxide (21.0-32.0) mmol/L Anion Gap (5-15) mmol/L BUN (7-18) mg/dL Creatinine (0.51-1.17) mg/dL Est Cr Clr Drug Dosing Estimated GFR (MDRD) mL/min Glucose (70-140) mg/dL POC Glucose 97 (70-140) mg/dL Lactic Acid 1.7 (0.4-2.0) mmol/L Calcium (8.7-10.3) mg/dL Magnesium (1.8-2.4) mg/dL Total Bilirubin (0.2-1.0) mg/dL AST (15-37) U/L ALT (14-63) U/L Alkaline Phosphatase (46-116) U/L C-Reactive Protein 4.1 H (0.0-0.9) mg/dL Total Protein (6.4-8.2) g/dL Albumin (3.40-5.00) g/dL Specimen Type Urine Color (YELLOW) Urine Appearance (CLEAR) Urine pH (5.0-9.0) Ur Specific [place] (1.005-1.030) Urine Protein (NEGATIVE) mg/dL Urine Glucose (UA) (NEGATIVE) mg/dL Urine Ketones (NEGATIVE) mg/dL Urine Occult Blood (NEGATIVE) Urine Nitrite (NEGATIVE) Urine Bilirubin (NEGATIVE) Urine Urobilinogen (0.2-1.0) E.U./dL Ur Leukocyte Esterase (NEGATIVE) U Hyaline Cast (Auto) Urine RBC (0-5) /HPF Urine WBC (0-5) /HPF Ur Epithelial Cells /LPF Amorphous Sediment (0/HPF) /HPF Urine Bacteria (NONE TO FEW) /HPF SARS CoV-2 RNA Rapid JENNIFER (NEGATIVE) 12/08/20 Range/Units 07:00 WBC (5.00-10.00) 10^3/uL RBC (4.50-6.00) 10^6/uL Hgb (13.0-17.0) g/dL Hct (40.0-52.0) % MCV (82.0-92.0) fL MCH (27.0-31.0) pg MCHC (32.0-36.0) g/dL RDW (11.5-14.5) % Plt Count (150-400) 10^3/uL MPV (7.4-10.4) fL Immature Gran % (Auto) (0.0-5.0) % Neut % (Auto) (50.0-70.0) % Lymph % (Auto) (20.0-40.0) % [place] % (Auto) (2.0-8.0) % Eos % (Auto) (1.0-3.0) % Baso % (Auto) (0.0-1.0) % Neut # (Auto) (2.50-7.00) 10^3/uL Lymph # (Auto) (1.00-4.00) 10^3/uL [place] # (Auto) (0.10-0.80) 10^3/uL Eos # (Auto) (0.10-0.30) 10^3/uL Baso # (Auto) (0.00-0.10) 10^3/uL Immature Gran # (Auto) (0.00-0.50) 10^3/uL Sodium (136-145) mmol/L Potassium (3.5-5.1) mmol/L Chloride (98-107) mmol/L Carbon Dioxide (21.0-32.0) mmol/L Anion Gap (5-15) mmol/L BUN (7-18) mg/dL Creatinine (0.51-1.17) mg/dL Est Cr Clr Drug Dosing Estimated GFR (MDRD) mL/min Glucose (70-140) mg/dL POC Glucose (70-140) mg/dL Lactic Acid (0.4-2.0) mmol/L Calcium (8.7-10.3) mg/dL Magnesium 1.5 L (1.8-2.4) mg/dL Total Bilirubin (0.2-1.0) mg/dL AST (15-37) U/L ALT (14-63) U/L Alkaline Phosphatase (46-116) U/L C-Reactive Protein (0.0-0.9) mg/dL Total Protein (6.4-8.2) g/dL Albumin (3.40-5.00) g/dL Specimen Type Urine Color (YELLOW) Urine Appearance (CLEAR) Urine pH (5.0-9.0) Ur Specific [place] (1.005-1.030) Urine Protein (NEGATIVE) mg/dL Urine Glucose (UA) (NEGATIVE) mg/dL Urine Ketones (NEGATIVE) mg/dL Urine Occult Blood (NEGATIVE) Urine Nitrite (NEGATIVE) Urine Bilirubin (NEGATIVE) Urine Urobilinogen (0.2-1.0) E.U./dL Ur Leukocyte Esterase (NEGATIVE) U Hyaline Cast (Auto) Urine RBC (0-5) /HPF Urine WBC (0-5) /HPF Ur Epithelial Cells /LPF Amorphous Sediment (0/HPF) /HPF Urine Bacteria (NONE TO FEW) /HPF SARS CoV-2 RNA Rapid JENNIFER (NEGATIVE) Result Diagrams: 12/07/20 14:00 12/07/20 14:00 Sepsis Event Note - Evaluation Sepsis Screening Result: Possible Sepsis Risk - Focused Exam Vital Signs: Vital Signs Temp Pulse Resp BP Pulse Ox 12/08/20 06:38 96.7 F L 81 20 132/72 96 12/08/20 03:00 97.1 F 87 20 133/79 96 - Problem List Review Problem List Initiated/Reviewed/Updated: Yes - My Orders Last 24 Hours: My Active Orders 12/08/20 14:00 Oxybutynin 2.5 mg PO TID 12/08/20 21:00 Finasteride [Proscar] 5 mg PO BEDTIME - Plan Plan:: HPI summary: Willy is a 75 yM patient who presented to the ER via private vehcile with c/o of urinary retention for ten days, with increased symptoms over the past two days. Patient received Folfox chemo three days ago for metastatic CA of unknown primary source per PET scan results, source suspected to be upper GI/pancreatic/biliary in origin. Denies fever, reports chills, but has had cold intolerance since chemo. Denies dyspnea, chest pain or N/V/D. Hx of chronic constipation and took miralax on Tuesday for same. Recent use of oxycodone and daughter reports patient may have taken too much, but patient did not appear somnolent in the ED, and daughter reports improvement since starting fluids. ED course: -VS: 98.3-94-20-87/54-90%/RA -Lab: WBC 3.56, RBC 3.36, Hgb 10.4, Hct 31.7, macrocytic, normochromic, neut 49.1% (L), mono 9.6% (H), plt 155, NA 142, K 3.9, Cl 103, anion gap 16.3, BUN 40, creatinine 1.26, gfr 56, Tbili 1.1, AST 44, ALT 42, alk phos 186, albumin 2.8 (L); COVID neg, lactic 4.5 -Urine: slightly cloudy, trace protein, neg blood, neg nitrites, rare hyaline casts, 0-5 RBC, 0-5 WBC, occ epithelial cells, occ amorphous sediment, no bacteria -CXR: neg -BCx2 -NS 1 liter bolus IV -Ceftriaxone 2gm IVP and Vancomycin IV Patient admitted to [facility] per Viviana Gonzales APRN, FRANCIS to inpatient status for fluid resuscitation and IV antibiotics while blood cultures are pending to R/O bacteremia. 12/08/20: Patient reports severe bladder spasms with carmona catheter in place. Complains of ongoing chills and tingling of his fingers since starting chemo. Loose stools x 3 since last evening per patient, possibly related to antibiotics and/or laxatives taken this weekend for constipation. Blood pressure improved with IV fluids, afebrile. Lactic acid normalized overnight. Lung sounds clear, HR RRR, murmur on auscultation. Non-pitting edema of lower extremities. Will trial oxybutynin 2.5mg TID for bladder spasms and start proscar 5mg at HS for urinary retention in addition to current regimen of flomax 0.4mg PO daily. No results available from [facility] x 2 yet this morning. Will continue antibiotics until NGTD x 48 hours to rule out bacteremia. Labs ordered for am. Hospitalization problems and plan: # Hypotension; resolved. BP 132/72 this morning. - Continue IVF NS 125mL/hr - Continue hold lisinopril/HCTZ, consider restarting tomorrow based on BP and clinical course - Continue holding oxycodone for now # Elevated lactic acid, R/O bacteremia - Repeat lactic acid improved to 3.5 and then normalized to 1.7 - Continue Vancomycin and ceftriaxone while blood cultures are pending, plan to de-escalate care as appropriate - Blood cultures and procalcitonin pending - Continuing to hold metformin # Urinary retention - patient reports a rather traumatic placement, will plan to leave carmona in place and seek urological consultation after discharge. - Continue Carmona catheter - Strict I/O # Acute kidney injury, suspect prerenal cause with hypotension; Creatinine 1.26, BUN 40 this morning. 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 Anticipate possible discharge home Tuesday afternoon/evening if BC negative x 2 days and based on clinical course. Anticipate discharge with carmona in place due to urinary retention with difficult catheter placement.
[2020-12-08] MEDS: Oxybutynin 5 MG Tab PO SCH ×2 (13:59→20:20)
[2020-12-08] MEDS: Phenazopyridine 100 MG Tab PO SCH (17:35)
[2020-12-08] MEDS: cefTRIAXone 2 GM Vial IVPUSH SCH (17:36)
[2020-12-08] MEDS: Finasteride 5 MG Tab PO SCH (20:20)
[2020-12-08] MEDS: Allopurinol 100 MG Tab PO SCH (20:20)
[2020-12-08] MEDS: Aspirin 325 MG Tab.EC PO SCH (20:20)
[2020-12-08] MEDS: Simvastatin 20 MG Tab PO SCH (20:21)
[2020-12-09] MEDS: Phenazopyridine 100 MG Tab PO SCH ×3 (01:54→18:11)
[2020-12-09 07:00] LABS: ANION GAP 11.3 mmol/L (5-15); CHLORIDE,CL 107 mmol/L (98-107); SODIUM,NA 143 mmol/L (136-145)
[2020-12-09] MEDS: Sodium Chloride 0.9% 1,000 ML IV SCH ×2 (07:20→09:57)
[2020-12-09] MEDS: Insulin Aspart 100 Units/ML 3 ML Pen SUBCUT SCH ×3 (07:39→18:19)
[2020-12-09] MEDS ORDERED: Potassium Chloride 20 MEQ Packet PO ONE (09:30)
[2020-12-09] MEDS: Oxybutynin 5 MG Tab PO SCH ×3 (09:55→20:29)
[2020-12-09] MEDS: Ascorbic Acid 500 MG Tab PO SCH (09:55)
[2020-12-09] MEDS: Magnesium Oxide 500 MG Tab PO SCH (09:57)
--- NOTE | 2020-12-09 11:06 | PCM.PN ---
- General Info Date of Service: 12/09/20 Functional Status: Reports: Tolerating Diet, Ambulating, Urinating. Denies: Pain Controlled, New Symptoms - Review of Systems General: Reports: No Symptoms HEENT: Reports: No Symptoms Pulmonary: Reports: No Symptoms Cardiovascular: Reports: No Symptoms Gastrointestinal: Reports: No Symptoms Genitourinary: Reports: Other (bladder spasms from urinary catheter) Musculoskeletal: Reports: No Symptoms Skin: Reports: No Symptoms Neurological: Reports: No Symptoms Psychiatric: Reports: Depression - Patient Data Vitals - Most Recent: Last Vital Signs Temp 96.9 F 12/09/20 06:56 Pulse 71 12/09/20 06:56 Resp 20 12/09/20 06:56 BP 122/85 12/09/20 06:56 Pulse Ox 95 12/09/20 06:56 Weight - Most Recent: 208 lb 7 oz I&O - Last 24 Hours: Intake & Output 12/08/20 12/09/20 12/09/20 22:59 06:59 14:59 Intake Total 2469 1219 Output Total 1600 850 Balance 869 369 Lab Results Last 24 Hours: Laboratory Results - last 24 hr 12/07/20 12/08/20 12/08/20 Range/Units 17:05 11:54 17:34 WBC (5.00-10.00) 10^3/uL RBC (4.50-6.00) 10^6/uL Hgb (13.0-17.0) g/dL Hct (40.0-52.0) % MCV (82.0-92.0) fL MCH (27.0-31.0) pg MCHC (32.0-36.0) g/dL RDW (11.5-14.5) % Plt Count (150-400) 10^3/uL MPV (7.4-10.4) fL Immature Gran % (Auto) (0.0-5.0) % Neut % (Auto) (50.0-70.0) % Lymph % (Auto) (20.0-40.0) % [place] % (Auto) (2.0-8.0) % Eos % (Auto) (1.0-3.0) % Baso % (Auto) (0.0-1.0) % Neut # (Auto) (2.50-7.00) 10^3/uL Lymph # (Auto) (1.00-4.00) 10^3/uL [place] # (Auto) (0.10-0.80) 10^3/uL Eos # (Auto) (0.10-0.30) 10^3/uL Baso # (Auto) (0.00-0.10) 10^3/uL Immature Gran # (Auto) (0.00-0.50) 10^3/uL Sodium (136-145) mmol/L Potassium (3.5-5.1) mmol/L Chloride (98-107) mmol/L Carbon Dioxide (21.0-32.0) mmol/L Anion Gap (5-15) mmol/L BUN (7-18) mg/dL Creatinine (0.51-1.17) mg/dL Est Cr Clr Drug Dosing mL/min Estimated GFR (MDRD) mL/min Glucose (70-140) mg/dL POC Glucose 118 120 (70-140) mg/dL Calcium (8.7-10.3) mg/dL Total Bilirubin (0.2-1.0) mg/dL AST (15-37) U/L ALT (14-63) U/L Alkaline Phosphatase (46-116) U/L C-Reactive Protein (0.0-0.9) mg/dL Total Protein (6.4-8.2) g/dL Albumin (3.40-5.00) g/dL Procalcitonin 1.35 H ng/mL Vancomycin Trough (18.0-26.0) ug/mL 12/08/20 12/09/20 12/09/20 Range/Units 20:26 06:20 06:20 WBC 2.34 L (5.00-10.00) 10^3/uL RBC 2.94 L (4.50-6.00) 10^6/uL Hgb 9.2 L (13.0-17.0) g/dL Hct 27.7 L (40.0-52.0) % MCV 94.2 H (82.0-92.0) fL MCH 31.3 H (27.0-31.0) pg MCHC 33.2 (32.0-36.0) g/dL RDW 14.3 (11.5-14.5) % Plt Count 97 L (150-400) 10^3/uL MPV 9.8 (7.4-10.4) fL Immature Gran % (Auto) 0.4 (0.0-5.0) % Neut % (Auto) 53.8 (50.0-70.0) % Lymph % (Auto) 31.2 (20.0-40.0) % [place] % (Auto) 9.0 H (2.0-8.0) % Eos % (Auto) 4.3 H (1.0-3.0) % Baso % (Auto) 1.3 H (0.0-1.0) % Neut # (Auto) 1.26 L (2.50-7.00) 10^3/uL Lymph # (Auto) 0.73 L (1.00-4.00) 10^3/uL [place] # (Auto) 0.21 (0.10-0.80) 10^3/uL Eos # (Auto) 0.10 (0.10-0.30) 10^3/uL Baso # (Auto) 0.03 (0.00-0.10) 10^3/uL Immature Gran # (Auto) 0.01 (0.00-0.50) 10^3/uL Sodium (136-145) mmol/L Potassium (3.5-5.1) mmol/L Chloride (98-107) mmol/L Carbon Dioxide (21.0-32.0) mmol/L Anion Gap (5-15) mmol/L BUN (7-18) mg/dL Creatinine (0.51-1.17) mg/dL Est Cr Clr Drug Dosing mL/min Estimated GFR (MDRD) mL/min Glucose (70-140) mg/dL POC Glucose 121 (70-140) mg/dL Calcium (8.7-10.3) mg/dL Total Bilirubin (0.2-1.0) mg/dL AST (15-37) U/L ALT (14-63) U/L Alkaline Phosphatase (46-116) U/L C-Reactive Protein (0.0-0.9) mg/dL Total Protein (6.4-8.2) g/dL Albumin (3.40-5.00) g/dL Procalcitonin ng/mL Vancomycin Trough 16.4 L (18.0-26.0) ug/mL 12/09/20 12/09/20 Range/Units 06:20 07:39 WBC (5.00-10.00) 10^3/uL RBC (4.50-6.00) 10^6/uL Hgb (13.0-17.0) g/dL Hct (40.0-52.0) % MCV (82.0-92.0) fL MCH (27.0-31.0) pg MCHC (32.0-36.0) g/dL RDW (11.5-14.5) % Plt Count (150-400) 10^3/uL MPV (7.4-10.4) fL Immature Gran % (Auto) (0.0-5.0) % Neut % (Auto) (50.0-70.0) % Lymph % (Auto) (20.0-40.0) % [place] % (Auto) (2.0-8.0) % Eos % (Auto) (1.0-3.0) % Baso % (Auto) (0.0-1.0) % Neut # (Auto) (2.50-7.00) 10^3/uL Lymph # (Auto) (1.00-4.00) 10^3/uL [place] # (Auto) (0.10-0.80) 10^3/uL Eos # (Auto) (0.10-0.30) 10^3/uL Baso # (Auto) (0.00-0.10) 10^3/uL Immature Gran # (Auto) (0.00-0.50) 10^3/uL Sodium 143 (136-145) mmol/L Potassium 3.4 L (3.5-5.1) mmol/L Chloride 107 (98-107) mmol/L Carbon Dioxide 28.1 (21.0-32.0) mmol/L Anion Gap 11.3 (5-15) mmol/L BUN 16 (7-18) mg/dL Creatinine 0.77 (0.51-1.17) mg/dL Est Cr Clr Drug Dosing 88.28 mL/min Estimated GFR (MDRD) > 60 mL/min Glucose 104 (70-140) mg/dL POC Glucose 97 (70-140) mg/dL Calcium 8.1 L (8.7-10.3) mg/dL Total Bilirubin 0.7 (0.2-1.0) mg/dL AST 40 H (15-37) U/L ALT 36 (14-63) U/L Alkaline Phosphatase 174 H (46-116) U/L C-Reactive Protein 2.5 H (0.0-0.9) mg/dL Total Protein 6.3 L (6.4-8.2) g/dL Albumin 2.38 L (3.40-5.00) g/dL Procalcitonin ng/mL Vancomycin Trough (18.0-26.0) ug/mL Danilo Results Last 24 Hours: Microbiology 12/07/20 15:00 Aerobic Blood Culture - Preliminary Blood - Venous - Lab Draw NO GROWTH AFTER 1 DAY Anaerobic Blood Culture - Preliminary NO GROWTH AFTER 1 DAY 12/07/20 15:10 Aerobic Blood Culture - Preliminary Blood - Venous NO GROWTH AFTER 1 DAY Anaerobic Blood Culture - Preliminary NO GROWTH AFTER 1 DAY Med Orders - Current: Current Medications Acetaminophen (Acetaminophen 325 Mg Tab) 650 mg PO Q6H PRN PRN Reason: Pain Last Admin: 12/08/20 21:29 Dose: 650 mg Documented by: Allopurinol (Allopurinol 100 Mg Tab) 300 mg PO BEDTIME [facility] Last Admin: 12/08/20 20:20 Dose: 300 mg Documented by: Ascorbic Acid (Ascorbic Acid 500 Mg Tab) 500 mg PO DAILY [facility] Last Admin: 12/09/20 09:55 Dose: 500 mg Documented by: Aspirin (Aspirin 325 Mg Tab.Ec) 325 mg PO BEDTIME [facility] Last Admin: 12/08/20 20:20 Dose: 325 mg Documented by: Ceftriaxone Sodium (Ceftriaxone 2 Gm Vial) 2 gm IVPUSH Q24H [facility] Last Admin: 12/08/20 17:36 Dose: 2 gm Documented by: Dextrose/Water (50% Dextrose In Water 50 Ml Syringe) 50 ml IVPUSH ASDIRECTED PRN PRN Reason: Hypoglycemia Finasteride (Finasteride 5 Mg Tab) 5 mg PO BEDTIME [facility] Last Admin: 12/08/20 20:20 Dose: 5 mg Documented by: Glucagon (Glucagon,Human Recombinant 1 Mg Vial) 1 mg IM ASDIRECTED PRN PRN Reason: Hypoglycemia Vancomycin HCl 1.5 gm/ Sodium (Chloride) 250 mls @ 166.667 mls/hr IV Q12H [facility] Last Admin: 12/09/20 07:33 Dose: 166.667 mls/hr Documented by: Sodium Chloride (Normal Saline) 1,000 mls @ 50 mls/hr IV ASDIRECTED [facility] Last Admin: 12/09/20 09:57 Dose: 50 mls/hr Documented by: Insulin Aspart (Insulin Aspart 100 Units/Ml 3 Ml Pen) 0 unit SUBCUT WITHMEALSANDBED [facility]; Protocol Last Admin: 12/09/20 07:39 Dose: Not Given Documented by: Magnesium Oxide (Magnesium Oxide 500 Mg Tab) 500 mg PO DAILY [facility] Last Admin: 12/09/20 09:57 Dose: 500 mg Documented by: Nitroglycerin (Nitroglycerin 0.4 Mg Tab.Sl) 0.4 mg SL ASDIRECTED PRN PRN Reason: Heart. Oxybutynin Chloride (Oxybutynin 5 Mg Tab) 5 mg PO TID [facility] Last Admin: 12/09/20 09:55 Dose: 5 mg Documented by: Phenazopyridine HCl (Phenazopyridine 100 Mg Tab) 200 mg PO Q8H [facility] Stop: 12/10/20 18:01 Last Admin: 12/09/20 09:55 Dose: 200 mg Documented by: Simvastatin (Simvastatin 20 Mg Tab) 20 mg PO BEDTIME [facility] Last Admin: 12/08/20 20:21 Dose: 20 mg Documented by: Sodium Chloride (Sodium Chloride 0.9% 10 Ml Syringe) 10 ml FLUSH Q8HR PRN PRN Reason: keep vein open Vancomycin HCl (Pharmacy To Dose - Vancomycin) 1 dose .XX ASDIRECTED [facility] Discontinued Medications Atropine Sulfate (Atropine 0.1 Mg/Ml 10 Ml Syringe) 0 mg IVPUSH ASDIRECTED PRN PRN Reason: Heart. Ceftriaxone Sodium (Ceftriaxone 2 Gm Vial) 2 gm IVPUSH ONETIME ONE Stop: 12/07/20 15:55 Last Admin: 12/07/20 16:46 Dose: 2 gm Documented by: Epinephrine HCl (Epinephrine 1:10,000 1 Mg/10 Ml Syringe) 1 mg IVPUSH ASDIRECTED PRN PRN Reason: Heart. Sodium Chloride (Normal Saline) 1,000 mls @ 1,000 mls/hr IV BOLUS ONE; Protocol Stop: 12/07/20 15:22 Last Admin: 12/07/20 14:45 Dose: 1,000 mls/hr Documented by: Vancomycin HCl 1 gm/ Sodium (Chloride) 250 mls @ 167 mls/hr IV ONETIME ONE Stop: 12/07/20 17:23 Last Admin: 12/07/20 17:20 Dose: 167 mls/hr Documented by: Sodium Chloride (Normal Saline) Confirm Administered Dose 100 mls @ as directed .ROUTE .STK-MED ONE Stop: 12/07/20 16:38 Last Admin: 12/07/20 16:41 Dose: Not Given Documented by: Sodium Chloride (Normal Saline) Confirm Administered Dose 1,000 mls @ as directed .ROUTE .STK-MED ONE Stop: 12/07/20 16:39 Last Admin: 12/07/20 16:39 Dose: Not Given Documented by: Sodium Chloride (Normal Saline) 1,000 mls @ 999 mls/hr IV .BOLUS ONE Stop: 12/07/20 17:54 Last Admin: 12/07/20 16:59 Dose: 999 mls/hr Documented by: Sodium Chloride (Normal Saline) 1,000 mls @ 125 mls/hr IV ASDIRECTED [facility] Last Admin: 12/09/20 07:20 Dose: 125 mls/hr Documented by: Lidocaine HCl (Lidocaine 2% 100 Mg/5 Ml Syringe) 0 mg IVPUSH ASDIRECTED PRN PRN Reason: Heart. Oxybutynin Chloride (Oxybutynin 5 Mg Tab) 2.5 mg PO TID [facility] Last Admin: 12/08/20 20:20 Dose: 2.5 mg Documented by: Potassium Chloride (Potassium Chloride 20 Meq Packet) 20 meq PO ONETIME ONE Stop: 12/09/20 09:31 Last Admin: 12/09/20 09:57 Dose: 20 meq Documented by: - Exam Quality Assessment: Urine Catheter. No: Supplemental Oxygen General: Alert, Oriented, Cooperative, No Acute Distress HEENT: Pupils Equal, Pupils Reactive, Mucous Membr. Moist/[place] Neck: Supple, Trachea Midline Lungs: Clear to Auscultation, Normal Respiratory Effort Cardiovascular: Regular Rate, Regular Rhythm, Murmurs GI/Abdominal Exam: Normal Bowel Sounds, Soft, Non-Tender, No Distention (Male) Exam: Deferred Back Exam: Normal Inspection, Full Range of Motion Extremities: Normal Inspection, Normal Range of Motion, Non-Tender, No Pedal Edema, Normal Capillary Refill Peripheral Pulses: 2+: Dorsalis Pedis (L), Dorsalis Pedis (R) Skin: Warm, Dry, Intact Neurological: No New Focal Deficit Psy/Mental Status: Alert, Depressed - Patient Data Lab Results Last 24 hrs: Laboratory Results - last 24 hr 12/07/20 12/08/20 12/08/20 Range/Units 17:05 11:54 17:34 WBC (5.00-10.00) 10^3/uL RBC (4.50-6.00) 10^6/uL Hgb (13.0-17.0) g/dL Hct (40.0-52.0) % MCV (82.0-92.0) fL MCH (27.0-31.0) pg MCHC (32.0-36.0) g/dL RDW (11.5-14.5) % Plt Count (150-400) 10^3/uL MPV (7.4-10.4) fL Immature Gran % (Auto) (0.0-5.0) % Neut % (Auto) (50.0-70.0) % Lymph % (Auto) (20.0-40.0) % [place] % (Auto) (2.0-8.0) % Eos % (Auto) (1.0-3.0) % Baso % (Auto) (0.0-1.0) % Neut # (Auto) (2.50-7.00) 10^3/uL Lymph # (Auto) (1.00-4.00) 10^3/uL [place] # (Auto) (0.10-0.80) 10^3/uL Eos # (Auto) (0.10-0.30) 10^3/uL Baso # (Auto) (0.00-0.10) 10^3/uL Immature Gran # (Auto) (0.00-0.50) 10^3/uL Sodium (136-145) mmol/L Potassium (3.5-5.1) mmol/L Chloride (98-107) mmol/L Carbon Dioxide (21.0-32.0) mmol/L Anion Gap (5-15) mmol/L BUN (7-18) mg/dL Creatinine (0.51-1.17) mg/dL Est Cr Clr Drug Dosing mL/min Estimated GFR (MDRD) mL/min Glucose (70-140) mg/dL POC Glucose 118 120 (70-140) mg/dL Calcium (8.7-10.3) mg/dL Total Bilirubin (0.2-1.0) mg/dL AST (15-37) U/L ALT (14-63) U/L Alkaline Phosphatase (46-116) U/L C-Reactive Protein (0.0-0.9) mg/dL Total Protein (6.4-8.2) g/dL Albumin (3.40-5.00) g/dL Procalcitonin 1.35 H ng/mL Vancomycin Trough (18.0-26.0) ug/mL 12/08/20 12/09/20 12/09/20 Range/Units 20:26 06:20 06:20 WBC 2.34 L (5.00-10.00) 10^3/uL RBC 2.94 L (4.50-6.00) 10^6/uL Hgb 9.2 L (13.0-17.0) g/dL Hct 27.7 L (40.0-52.0) % MCV 94.2 H (82.0-92.0) fL MCH 31.3 H (27.0-31.0) pg MCHC 33.2 (32.0-36.0) g/dL RDW 14.3 (11.5-14.5) % Plt Count 97 L (150-400) 10^3/uL MPV 9.8 (7.4-10.4) fL Immature Gran % (Auto) 0.4 (0.0-5.0) % Neut % (Auto) 53.8 (50.0-70.0) % Lymph % (Auto) 31.2 (20.0-40.0) % [place] % (Auto) 9.0 H (2.0-8.0) % Eos % (Auto) 4.3 H (1.0-3.0) % Baso % (Auto) 1.3 H (0.0-1.0) % Neut # (Auto) 1.26 L (2.50-7.00) 10^3/uL Lymph # (Auto) 0.73 L (1.00-4.00) 10^3/uL [place] # (Auto) 0.21 (0.10-0.80) 10^3/uL Eos # (Auto) 0.10 (0.10-0.30) 10^3/uL Baso # (Auto) 0.03 (0.00-0.10) 10^3/uL Immature Gran # (Auto) 0.01 (0.00-0.50) 10^3/uL Sodium (136-145) mmol/L Potassium (3.5-5.1) mmol/L Chloride (98-107) mmol/L Carbon Dioxide (21.0-32.0) mmol/L Anion Gap (5-15) mmol/L BUN (7-18) mg/dL Creatinine (0.51-1.17) mg/dL Est Cr Clr Drug Dosing mL/min Estimated GFR (MDRD) mL/min Glucose (70-140) mg/dL POC Glucose 121 (70-140) mg/dL Calcium (8.7-10.3) mg/dL Total Bilirubin (0.2-1.0) mg/dL AST (15-37) U/L ALT (14-63) U/L Alkaline Phosphatase (46-116) U/L C-Reactive Protein (0.0-0.9) mg/dL Total Protein (6.4-8.2) g/dL Albumin (3.40-5.00) g/dL Procalcitonin ng/mL Vancomycin Trough 16.4 L (18.0-26.0) ug/mL 12/09/20 12/09/20 Range/Units 06:20 07:39 WBC (5.00-10.00) 10^3/uL RBC (4.50-6.00) 10^6/uL Hgb (13.0-17.0) g/dL Hct (40.0-52.0) % MCV (82.0-92.0) fL MCH (27.0-31.0) pg MCHC (32.0-36.0) g/dL RDW (11.5-14.5) % Plt Count (150-400) 10^3/uL MPV (7.4-10.4) fL Immature Gran % (Auto) (0.0-5.0) % Neut % (Auto) (50.0-70.0) % Lymph % (Auto) (20.0-40.0) % [place] % (Auto) (2.0-8.0) % Eos % (Auto) (1.0-3.0) % Baso % (Auto) (0.0-1.0) % Neut # (Auto) (2.50-7.00) 10^3/uL Lymph # (Auto) (1.00-4.00) 10^3/uL [place] # (Auto) (0.10-0.80) 10^3/uL Eos # (Auto) (0.10-0.30) 10^3/uL Baso # (Auto) (0.00-0.10) 10^3/uL Immature Gran # (Auto) (0.00-0.50) 10^3/uL Sodium 143 (136-145) mmol/L Potassium 3.4 L (3.5-5.1) mmol/L Chloride 107 (98-107) mmol/L Carbon Dioxide 28.1 (21.0-32.0) mmol/L Anion Gap 11.3 (5-15) mmol/L BUN 16 (7-18) mg/dL Creatinine 0.77 (0.51-1.17) mg/dL Est Cr Clr Drug Dosing 88.28 mL/min Estimated GFR (MDRD) > 60 mL/min Glucose 104 (70-140) mg/dL POC Glucose 97 (70-140) mg/dL Calcium 8.1 L (8.7-10.3) mg/dL Total Bilirubin 0.7 (0.2-1.0) mg/dL AST 40 H (15-37) U/L ALT 36 (14-63) U/L Alkaline Phosphatase 174 H (46-116) U/L C-Reactive Protein 2.5 H (0.0-0.9) mg/dL Total Protein 6.3 L (6.4-8.2) g/dL Albumin 2.38 L (3.40-5.00) g/dL Procalcitonin ng/mL Vancomycin Trough (18.0-26.0) ug/mL Result Diagrams: 12/09/20 06:20 12/09/20 06:20 Danilo Results Last 24 hrs: Microbiology 12/07/20 15:00 Aerobic Blood Culture - Preliminary Blood - Venous - Lab Draw NO GROWTH AFTER 1 DAY Anaerobic Blood Culture - Preliminary NO GROWTH AFTER 1 DAY 12/07/20 15:10 Aerobic Blood Culture - Preliminary Blood - Venous NO GROWTH AFTER 1 DAY Anaerobic Blood Culture - Preliminary NO GROWTH AFTER 1 DAY Sepsis Event Note - Evaluation Sepsis Screening Result: Possible Sepsis Risk - Focused Exam Vital Signs: Vital Signs Temp Pulse Resp BP Pulse Ox 12/09/20 06:56 96.9 F 71 20 122/85 95 12/09/20 03:00 97.6 F 78 20 138/77 94 L - Problem List Review Problem List Initiated/Reviewed/Updated: Yes - My Orders Last 24 Hours: My Active Orders 12/08/20 21:00 Finasteride [Proscar] 5 mg PO BEDTIME 12/09/20 09:15 Magnesium Oxide 500 mg PO DAILY Sodium Chloride 0.9% [Normal Saline] 1,000 ml IV ASDIRECTED 12/09/20 09:30 Oxybutynin 5 mg PO TID - Plan Plan:: HPI summary: Willy is a 75 yM patient who presented to the ER via private vehcile with c/o of urinary retention for ten days, with increased symptoms over the past two days. Patient received Folfox chemo three days ago for metastatic CA of unknown primary source per PET scan results, source suspected to be upper GI/pancreatic/biliary in origin. Denies fever, reports chills, but has had cold intolerance since chemo. Denies dyspnea, chest pain or N/V/D. Hx of chronic constipation and took miralax on Tuesday for same. Recent use of oxycodone and daughter reports patient may have taken too much, but patient did not appear somnolent in the ED, and daughter reports improvement since starting fluids. ED course: -VS: 98.3-94-20-87/54-90%/RA -Lab: WBC 3.56, RBC 3.36, Hgb 10.4, Hct 31.7, macrocytic, normochromic, neut 49.1% (L), mono 9.6% (H), plt 155, NA 142, K 3.9, Cl 103, anion gap 16.3, BUN 40, creatinine 1.26, gfr 56, Tbili 1.1, AST 44, ALT 42, alk phos 186, albumin 2.8 (L); COVID neg, lactic 4.5 -Urine: slightly cloudy, trace protein, neg blood, neg nitrites, rare hyaline casts, 0-5 RBC, 0-5 WBC, occ epithelial cells, occ amorphous sediment, no ba cteria -CXR: neg -BCx2 -NS 1 liter bolus IV -Ceftriaxone 2gm IVP and Vancomycin IV Patient admitted to [facility] per Viviana Gonzales APRN, FRANCIS to inpatient status for fluid resuscitation and IV antibiotics while blood cultures are pending to R/O bacteremia. 12/08/20: Patient reports severe bladder spasms with carmona catheter in place. Complains of ongoing chills and tingling of his fingers since starting chemo. Loose stools x 3 since last evening per patient, possibly related to antibiotics and/or laxatives taken this weekend for constipation. Blood pressure improved with IV fluids, afebrile. Lactic acid normalized overnight. Lung sounds clear, HR RRR, murmur on auscultation. Non-pitting edema of lower extremities. Will trial oxybutynin 2.5mg TID for bladder spasms and start proscar 5mg at HS for urinary retention in addition to current regimen of flomax 0.4mg PO daily. No results available from BC x 2 yet this morning. Will continue antibiotics until NGTD x 48 hours to rule out bacteremia. Labs ordered for am. 12/09/20: Patient continues to c/o bladder spasms, does report this may be slightly improved with addition of medications yesterday. He did not sleep well due to spasms, however. Hemodynamically acceptable, BP 122/85 today. WBC 2.34, Hgb 9.2, Plt 97 today (Folfox chemo last week). CRP 2.5. BC x 2 NGTD x 1 day. Will continue antibiotics today and de-escalate as indicated if BC negative X 2 days. Hospitalization problems and plan: # Hypotension; resolved. BP 122/85 this morning. - Reduce IVF to 50ml/hr today - Continue hold lisinopril/HCTZ, consider restarting based on BP trends and clinical course - Continue holding oxycodone for now # Elevated lactic acid, R/O bacteremia - Repeat lactic acid improved to 3.5 and then normalized to 1.7 - Continue Vancomycin and ceftriaxone while blood cultures are pending, plan to de-escalate care as appropriate - Blood cultures with NGTD x 1 day; procalcitonin 1.35 - Continuing to hold metformin # Urinary retention - patient reports a rather traumatic placement, will plan to leave carmona in place and seek urological consultation after discharge. # Bladder spasms - Continue Carmona catheter - Strict I/O - Will increase dose of oxybutynin to 5mg PO TID - Continue pyridium 200mg TID as ordered by Dr Shaikh - Continue flomax 0.4mg PO daily - Added proscar 5mg last night at HS # Acute kidney injury, resolved. BUN 16, Creatinine 0.77 today - Continue to hold metformin - consider restarting - Decreased IVF to 50ml/hr today due to resolution of ABHISHEK # Hypokalemia; mild - 3.4 - Klor-con 20 mEq today - Repeat CMP in am # Hypomagnesemia; Mg 1.5 - Start mag oxide 500mg PO daily - Repeat Mg in am Chronic, stable conditions: # Essential hypertension, hold lisinopril/hctz # NSTEMI: no heart failure; last ECHO 04/2020 EF 65%, Normal LV systolic func tion, unable to assess for diastolic dysfunction; HOLD ASA given decreased plt # Moderate aortic stenosis # Hemispheric carotid artery syndrome # Hyperlipidemia, continue statin # TIA (transient ischemic attack) # Diabetes type 2, uncontrolled: start blood glucose checks and PRN low dose SS, hold metformin for now # 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 - onc suspects upper GI origin likely pancreatobiliary # Liver metastases # Gout, continue allopurinol # Hyperuricemia # Glucosuria # BPH associated with nocturia # Thrombocytopenia # Osteoarthritis # Dysmetabolic syndrome X # Pain in joint, lower leg # Obesity with body mass index of 30.0-39.9 Hospitalization details: # FEN: NS 50mL/hr; electrolytes stable; ADA diet # PPX: on ASA - will hold due to thrombocytopenia # Code status: Full code # Emergency contact: DaughterNguyen updated this am by nursing # Disposition: Will maintain inpatient status today for antibiotics while blood cultures are pending. Anticipate possible discharge home this afternoon/evening if BC negative x 2 days and based on clinical course. Anticipate discharge with carmona in place due to urinary retention with difficult catheter placement vs removal with voiding trial.
[2020-12-09] MEDS: cefTRIAXone 2 GM Vial IVPUSH SCH (18:13)
[2020-12-09] MEDS: Allopurinol 100 MG Tab PO SCH (20:29)
[2020-12-09] MEDS: Simvastatin 20 MG Tab PO SCH (20:29)
[2020-12-09] MEDS: Finasteride 5 MG Tab PO SCH (20:30)
[2020-12-09] MEDS: Acetaminophen 325 MG Tab PO PRN (21:58)
[2020-12-10] MEDS: Phenazopyridine 100 MG Tab PO SCH ×2 (01:11→09:05)
[2020-12-10] MEDS: Sodium Chloride 0.9% 1,000 ML IV SCH (03:57)
[2020-12-10] MEDS: Magnesium Oxide 500 MG Tab PO SCH (09:05)
[2020-12-10] MEDS: Acetaminophen 325 MG Tab PO PRN (09:05)
[2020-12-10] MEDS: Oxybutynin 5 MG Tab PO SCH ×2 (09:05→13:41)
[2020-12-10] MEDS: Ascorbic Acid 500 MG Tab PO SCH (09:05)
[2020-12-10] MEDS: Insulin Aspart 100 Units/ML 3 ML Pen SUBCUT SCH (09:12)
--- NOTE | 2020-12-10 11:35 | PCM.DCSUM1 ---
Discharge Summary - Hospital Course Free Text/Narrative:: Date of admission: Date of discharge: Admission diagnoses: Discharge diagnoses: Consultations: Procedures: Hospital course: Discharge and follow-up recommendations: - Discharge to - New medications at discharge: - Follow-up - Discharge Data Discharge Disposition: Home, Self-Care 01 Condition: Good - Referral to Home Health Primary Care Physician: Kristy Kraft NP - Discharge Plan Home Medications: Home Meds Ascorbate Calcium [Vitamin C] 500 mg PO DAILY 12/10/15 [History] Aspirin 325 mg PO BEDTIME 12/10/15 [History] Lisinopril/Hydrochlorothiazide [Lisinopril-Hctz 20-12.5 mg Tab] 1 tab PO BEDTIME 12/10/15 [History] Allopurinol [Zyloprim] 300 mg PO BEDTIME 12/12/15 [History] Fish Oil/[place]-3 Fatty Acids [Fish Oil 1,000 MG] 1 gm PO DAILY cap 12/12/15 [Rx] Simvastatin [Zocor] 20 mg PO BEDTIME #30 tablet 12/12/15 [Rx] metFORMIN [Glucophage] 500 mg PO BIDMEALS #60 tablet 12/12/15 [Rx] Forms: ED Department Discharge Referrals: Kristy Kraft NP [Primary Care Provider] - - General Info Date of Service: 12/10/20 Functional Status: Reports: Tolerating Diet, Ambulating, Urinating (with carmona cath in place). Denies: Pain Controlled (c/o urethral pain from catheter ), New Symptoms - Review of Systems General: Reports: No Symptoms HEENT: Reports: No Symptoms Pulmonary: Reports: No Symptoms Cardiovascular: Reports: No Symptoms Gastrointestinal: Reports: No Symptoms Genitourinary: Reports: Retention. Denies: Dysuria - Patient Data Vitals - Most Recent: Last Vital Signs Temp 97.9 F 12/10/20 06:12 Pulse 74 12/10/20 06:12 Resp 20 12/10/20 06:12 BP 131/84 12/10/20 06:12 Pulse Ox 95 12/10/20 06:12 Weight - Most Recent: 208 lb 7 oz I&O - Last 24 hours: Intake & Output 12/09/20 12/10/20 12/10/20 22:59 06:59 14:59 Intake Total 200 1708 Output Total 700 600 Balance -500 1108 Lab Results - Last 24 hrs: Laboratory Results - last 24 hr 12/09/20 Range/Units 17:41 POC Glucose 113 (70-140) mg/dL MAHESH Results - Last 24 hrs: Microbiology 12/07/20 15:00 Aerobic Blood Culture - Preliminary Blood - Venous - Lab Draw NO GROWTH AFTER 2 DAYS Anaerobic Blood Culture - Preliminary NO GROWTH AFTER 2 DAYS 12/07/20 15:10 Aerobic Blood Culture - Preliminary Blood - Venous NO GROWTH AFTER 2 DAYS Anaerobic Blood Culture - Preliminary NO GROWTH AFTER 2 DAYS Med Orders - Current: Current Medications Acetaminophen (Acetaminophen 325 Mg Tab) 650 mg PO Q6H PRN PRN Reason: Pain Last Admin: 12/10/20 09:05 Dose: 650 mg Documented by: Allopurinol (Allopurinol 100 Mg Tab) 300 mg PO BEDTIME [facility] Last Admin: 12/09/20 20:29 Dose: 300 mg Documented by: Ascorbic Acid (Ascorbic Acid 500 Mg Tab) 500 mg PO DAILY [facility] Last Admin: 12/10/20 09:05 Dose: 500 mg Documented by: Ceftriaxone Sodium (Ceftriaxone 2 Gm Vial) 2 gm IVPUSH Q24H [facility] Last Admin: 12/09/20 18:13 Dose: 2 gm Documented by: Dextrose/Water (50% Dextrose In Water 50 Ml Syringe) 50 ml IVPUSH ASDIRECTED PRN PRN Reason: Hypoglycemia Finasteride (Finasteride 5 Mg Tab) 5 mg PO BEDTIME [facility] Last Admin: 12/09/20 20:30 Dose: 5 mg Documented by: Glucagon (Glucagon,Human Recombinant 1 Mg Vial) 1 mg IM ASDIRECTED PRN PRN Reason: Hypoglycemia Vancomycin HCl 1.5 gm/ Sodium (Chloride) 250 mls @ 166.667 mls/hr IV Q12H [facility] Last Admin: 12/10/20 05:57 Dose: 166.667 mls/hr Documented by: Sodium Chloride (Normal Saline) 1,000 mls @ 50 mls/hr IV ASDIRECTED [facility] Last Admin: 12/10/20 03:57 Dose: 50 mls/hr Documented by: Insulin Aspart (Insulin Aspart 100 Units/Ml 3 Ml Pen) 0 unit SUBCUT [facility]; Protocol Last Admin: 12/10/20 09:12 Dose: Not Given Documented by: Magnesium Oxide (Magnesium Oxide 500 Mg Tab) 500 mg PO DAILY [facility] Last Admin: 12/10/20 09:05 Dose: 500 mg Documented by: Nitroglycerin (Nitroglycerin 0.4 Mg Tab.Sl) 0.4 mg SL ASDIRECTED PRN PRN Reason: Heart. Oxybutynin Chloride (Oxybutynin 5 Mg Tab) 5 mg PO TID [facility] Last Admin: 12/10/20 09:05 Dose: 5 mg Documented by: Phenazopyridine HCl (Phenazopyridine 100 Mg Tab) 200 mg PO Q8H [facility] Stop: 12/10/20 18:01 Last Admin: 12/10/20 09:05 Dose: 200 mg Documented by: Simvastatin (Simvastatin 20 Mg Tab) 20 mg PO BEDTIME [facility] Last Admin: 12/09/20 20:29 Dose: 20 mg Documented by: Sodium Chloride (Sodium Chloride 0.9% 10 Ml Syringe) 10 ml FLUSH Q8HR PRN PRN Reason: keep vein open Vancomycin HCl (Pharmacy To Dose - Vancomycin) 1 dose .XX ASDIRECTED YURIDIA Discontinued Medications Aspirin (Aspirin 325 Mg Tab.Ec) 325 mg PO BEDTIME [facility] Last Admin: 12/08/20 20:20 Dose: 325 mg Documented by: Atropine Sulfate (Atropine 0.1 Mg/Ml 10 Ml Syringe) 0 mg IVPUSH ASDIRECTED PRN PRN Reason: Heart. Ceftriaxone Sodium (Ceftriaxone 2 Gm Vial) 2 gm IVPUSH ONETIME ONE Stop: 12/07/20 15:55 Last Admin: 12/07/20 16:46 Dose: 2 gm Documented by: Epinephrine HCl (Epinephrine 1:10,000 1 Mg/10 Ml Syringe) 1 mg IVPUSH ASDIRECTED PRN PRN Reason: Heart. Sodium Chloride (Normal Saline) 1,000 mls @ 1,000 mls/hr IV BOLUS ONE; Protocol Stop: 12/07/20 15:22 Last Admin: 12/07/20 14:45 Dose: 1,000 mls/hr Documented by: Vancomycin HCl 1 gm/ Sodium (Chloride) 250 mls @ 167 mls/hr IV ONETIME ONE Stop: 12/07/20 17:23 Last Admin: 12/07/20 17:20 Dose: 167 mls/hr Documented by: Sodium Chloride (Normal Saline) Confirm Administered Dose 100 mls @ as directed .ROUTE .STK-MED ONE Stop: 12/07/20 16:38 Last Admin: 12/07/20 16:41 Dose: Not Given Documented by: Sodium Chloride (Normal Saline) Confirm Administered Dose 1,000 mls @ as directed .ROUTE .STK-MED ONE Stop: 12/07/20 16:39 Last Admin: 12/07/20 16:39 Dose: Not Given Documented by: Sodium Chloride (Normal Saline) 1,000 mls @ 999 mls/hr IV .BOLUS ONE Stop: 12/07/20 17:54 Last Admin: 12/07/20 16:59 Dose: 999 mls/hr Documented by: Sodium Chloride (Normal Saline) 1,000 mls @ 125 mls/hr IV ASDIRECTED [facility] Last Admin: 12/09/20 07:20 Dose: 125 mls/hr Documented by: Insulin Aspart (Insulin Aspart 100 Units/Ml 3 Ml Pen) 0 unit SUBCUT WITHMEALSANDBED [facility]; Protocol Last Admin: 12/09/20 16:57 Dose: Not Given Documented by: Lidocaine HCl (Lidocaine 2% 100 Mg/5 Ml Syringe) 0 mg IVPUSH ASDIRECTED PRN PRN Reason: Heart. Oxybutynin Chloride (Oxybutynin 5 Mg Tab) 2.5 mg PO TID [facility] Last Admin: 12/08/20 20:20 Dose: 2.5 mg Documented by: Potassium Chloride (Potassium Chloride 20 Meq Packet) 20 meq PO ONETIME ONE Stop: 12/09/20 09:31 Last Admin: 12/09/20 09:57 Dose: 20 meq Documented by:
[2020-12-10] MEDS ORDERED: Lidocaine 2% Jelly 5 ML Tube MUCMEM SCH (15:45)
[2020-12-10 17:07] VITALS: BP 128/80; PULSE 76
[2020-12-10] MEDS: cefTRIAXone 2 GM Vial IVPUSH SCH (17:12)
[2020-12-10] MEDS ORDERED: Sodium Chloride 0.9% 20 ML SDV FLUSH ONE (17:27)
== END 2020-12-10 17:30 | disposition home or self-care (01) | DRG 682 ==
LOC: KA.ED 13:20 → KA.MS 16:41
PROVIDERS: ADMIT Physician Assistant Medical; ATTEND Nurse Practitioner Family
DX: A41.9 Sepsis, unspecified organism (principal); R33.9 Retention of urine, unspecified; H54.7 Unspecified visual loss; N17.9 Acute kidney failure, unspecified; K44.9 Diaphragmatic hernia without obstruction or gangrene; E11.9 Type 2 diabetes mellitus without complications; I21.4 Non-ST elevation (NSTEMI) myocardial infarction; Z79.84 Long term (current) use of oral hypoglycemic drugs; Z79.82 Long term (current) use of aspirin; Z79.899 Other long term (current) drug therapy; C78.7 Secondary malignant neoplasm of liver and intrahepatic bile duct; C96.9 Malignant neoplasm of lymphoid, hematopoietic and related tissue, unspecified; I10 Essential (primary) hypertension; N40.1 Benign prostatic hyperplasia with lower urinary tract symptoms; R33.8 Other retention of urine; E78.5 Hyperlipidemia, unspecified; E11.65 Type 2 diabetes mellitus with hyperglycemia; K59.00 Constipation, unspecified; R35.1 Nocturia; E66.9 Obesity, unspecified; D69.6 Thrombocytopenia, unspecified; E79.0 Hyperuricemia without signs of inflammatory arthritis and tophaceous disease; I35.0 Nonrheumatic aortic (valve) stenosis; Z20.822 Contact with and (suspected) exposure to COVID-19; E83.42 Hypomagnesemia; E87.6 Hypokalemia; Z79.4 Long term (current) use of insulin; Z68.30 Body mass index [BMI] 30.0-30.9, adult; Z86.73 Personal history of transient ischemic attack (TIA), and cerebral infarction without residual deficits; N32.89 Other specified disorders of bladder
CPT/HCPCS: 36415; 51798; 71045; 80053; 80202; 81001; 82947; 83605; 83735; 84145; 85025; 86140; 87040; 96374; 99284; 99285-25; A9270-GY; J0696; J1642; J3370; J7030; J7050; U0002

== ENCOUNTER 2021-02-18 16:40 | Emergency (ER) | payer MEDICARE, BC ==
--- NOTE | 2021-02-18 17:06 | EDM.PDOC ---
ED HPI GENERAL MEDICAL PROBLEM - General Chief Complaint: Upper Extremity Injury/Pain Stated Complaint: FALL Time Seen by Provider: 02/18/21 16:45 Source of Information: Reports: Patient - History of Present Illness INITIAL COMMENTS - FREE TEXT/NARRATIVE: Willy, 75-year-old male, presents by private vehicle with friend after he fell from his chair while at home. It is unclear if he was sleeping and slipped out as he does not recall. He denies striking his head or having any discomfort other than to the right shoulder. Was unable to get up on his own which she states is common from a lying position specifically on the floor. The friend that transported him stated that he was somewhat tremoring shaky when they got him up for the transport to the facility by private vehicle. Willy states that this is occurred 6 or 7 times since he started his chemotherapy with no sequela. This event he called for help as he was unable to get up from the floor. Onset: Today, Sudden Onset Date: 02/18/21 Duration: Minutes: Location: Reports: Upper Extremity, Right Quality: Reports: Ache, Pressure Severity: Moderate Improves with: Reports: Movement (Adjustment) Context: Reports: Activity Associated Symptoms: Reports: Syncope (possible) - Related Data Allergies Allergy/AdvReac Type Severity Reaction Status Date / Time aspirin Allergy Cannot Verified 02/18/21 17:34 Remember Elkefkv-BSM-FfH Reductase Allergy Cannot Verified 02/18/21 17:34 Inhibitor Remember Home Meds: Home Meds Ascorbate Calcium [Vitamin C] 500 mg PO BEDTIME 12/10/15 [History] Allopurinol [Zyloprim] 300 mg PO BEDTIME 12/12/15 [History] Capecitabine [Xeloda] 1,500 mg PO BID 02/18/21 [History] Fish Oil/[place]-3 Fatty Acids [Fish Oil 1,000 MG] 1 gm PO BID 02/18/21 [History] Furosemide [Lasix] 20 mg PO DAILY 02/18/21 [History] Loperamide [Imodium] 4 mg PO DAILY 02/18/21 [History] Magnesium Chloride [Magnesium] 128 mg PO BID 02/18/21 [History] Megestrol Acetate 400 mg PO DAILY 02/18/21 [History] Mirtazapine [Remeron] 30 mg PO BEDTIME 02/18/21 [History] Potassium Chloride [Klor-Con M10] 10 meq PO DAILY 02/18/21 [History] Prochlorperazine Maleate [Compazine] 10 mg PO QID PRN 02/18/21 [History] Semaglutide [Ozempic] 0.5 mg SQ Q7D 02/18/21 [History] Sennosides/Docusate Sodium [Senna-Docusate Sodium Tablet] 1 tab PO BID 02/18/21 [History] dexAMETHasone [Dexamethasone] 8 mg PO DAILY 02/18/21 [History] metFORMIN [Glucophage] 1,000 mg PO BIDMEALS 02/18/21 [History] oxyCODONE 2.5 - 5 mg PO Q6H PRN 02/18/21 [History] Past Medical History HEENT History: Reports: Impaired Vision Cardiovascular History: Reports: Hypertension Gastrointestinal History: Reports: Hiatal Hernia Genitourinary History: Reports: BPH, Retention, Urinary Musculoskeletal History: Reports: Gout Neurological History: Reports: None Psychiatric History: Reports: None Endocrine/Metabolic History: Reports: Diabetes, Type II Hematologic History: Reports: None Immunologic History: Reports: Immunosuppression Other Immunologic History: currently on chemotherapy Other Oncologic History: clavicle lymph nodes. lymph nodes in abdominal area. spot on liver. questioning pancreatic. new diagnosis september 2020 Dermatologic History: Reports: None - Infectious Disease History Infectious Disease History: Reports: Chicken Pox, Measles, Mumps, Other (See Below) Other Infectious Disease History: West Nile 9 years ago. - Past Surgical History Musculoskeletal Surgical History: Reports: Knee Replacement Social & Family History - Family History Family Medical History: No Pertinent Family History HEENT: Reports: Other (See Below) Other HEENT Family History: Some cataract surgery. Cardiac: Reports: ME Endocrine/Metabolic: Reports: Diabetes, type II Oncologic: Reports: Pancreatic - Caffeine Use Caffeine Use: Reports: Coffee Caffeine Use Comment: 1 soda every other day. ED ROS GENERAL - Review of Systems Review Of Systems: Comprehensive ROS is negative, except as noted in HPI. ED EXAM, GENERAL - Physical Exam Exam: See Below Free Text/Narrative:: Willy is alert and oriented somewhat anxious with HEENT to be negative to discharge nor deformity. [place] moist mucous membranes. Neck is soft and supple with mild muscle rigidity limiting motion. Negative Nexus criteria for any spinal injury. Palpation of the left shoulder and upper extremity is benign with radial pulse present. Right upper extremity has crepitus click noted to the posterior shoulder girdle scapula humeral head region. There is no deformity or tenderness to the clavicle. He speaks of mild numbness tingling to the fingertips of the right hand. Radial pulses present. Thorax is clear no wheezes no crackles. There is a port in the right upper anterior chest and scarring of his pacer/defibrillator of the left anterior chest wall. Cardiac is S1 is 2 with no appreciated murmur. Abdomen is soft. There is +2 edema to the lower extremities with no evidence of injury to the pelvis nor lower extremities. Exam Limited By: No Limitations General Appearance: Alert, WD/WN, No Apparent Distress Ears: Normal External Exam, Normal Canal Nose: Normal Inspection, Normal Mucosa Throat/Mouth: Normal Inspection, Normal Lips Head: Atraumatic, Normocephalic Neck: Normal Inspection, Full Range of Motion (tight muscles) Respiratory/Chest: No Respiratory Distress Cardiovascular: Normal Peripheral Pulses, Regular Rate, Rhythm GI/Abdominal: Normal Bowel Sounds (Male) Exam: Deferred Rectal (Males) Exam: Deferred Back Exam: Normal Inspection Extremities: Other (There is a click noted to the right posterior shoulder with mild impingement type syndrome tingling to the digits. X-ray obtained to rule out fracture dislocation.) Neurological: Alert, Oriented, CN II-XII Intact, Normal Cognition, Normal Gait, Normal Reflexes, No Motor/Sensory Deficits Psychiatric: Anxious Skin Exam: Warm, Dry, Intact, Normal Color, No Rash Course - Vital Signs Last Recorded V/S: Last Vital Signs Temp 97.5 F 02/18/21 16:45 Pulse 93 02/18/21 17:42 Resp 16 02/18/21 17:42 BP 131/80 02/18/21 17:42 Pulse Ox 97 02/18/21 17:42 - Orders/Labs/Meds Labs: Laboratory Tests 02/18/21 02/18/21 Range/Units 17:19 17:19 WBC 6.99 (5.00-10.00) 10^3/uL RBC 3.63 L (4.50-6.00) 10^6/uL Hgb 11.1 L D (13.0-17.0) g/dL Hct 34.0 L (40.0-52.0) % MCV 93.7 H (82.0-92.0) fL MCH 30.6 (27.0-31.0) pg MCHC 32.6 (32.0-36.0) g/dL RDW 17.6 H (11.5-14.5) % Plt Count 126 L (150-400) 10^3/uL MPV 11.1 H (7.4-10.4) fL Immature Gran % (Auto) 0.1 (0.0-5.0) % Neut % (Auto) 71.0 H (50.0-70.0) % Lymph % (Auto) 13.2 L (20.0-40.0) % [place] % (Auto) 14.4 H (2.0-8.0) % Eos % (Auto) 0.9 L (1.0-3.0) % Baso % (Auto) 0.4 (0.0-1.0) % Neut # (Auto) 4.96 (2.50-7.00) 10^3/uL Lymph # (Auto) 0.92 L (1.00-4.00) 10^3/uL [place] # (Auto) 1.01 H (0.10-0.80) 10^3/uL Eos # (Auto) 0.06 L (0.10-0.30) 10^3/uL Baso # (Auto) 0.03 (0.00-0.10) 10^3/uL Immature Gran # (Auto) 0.01 (0.00-0.50) 10^3/uL Sodium 137 (136-145) mmol/L Potassium 4.3 (3.5-5.1) mmol/L Chloride 102 (98-107) mmol/L Carbon Dioxide 25.2 (21.0-32.0) mmol/L Anion Gap 14.1 (5-15) mmol/L BUN 13 (7-18) mg/dL Creatinine 0.81 (0.51-1.17) mg/dL Est Cr Clr Drug Dosing TNP Estimated GFR (MDRD) > 60 mL/min Glucose 109 (70-140) mg/dL Calcium 9.2 (8.7-10.3) mg/dL Total Bilirubin 0.9 (0.2-1.0) mg/dL AST 47 H (15-37) U/L ALT 24 (14-63) U/L Alkaline Phosphatase 279 H (46-116) U/L Total Protein 7.4 (6.4-8.2) g/dL Albumin 2.65 L (3.40-5.00) g/dL - Radiology Interpretation Free Text/Narrative:: No evidence of infiltrate in the chest x-ray with port noted as well as event monitor. No fracture or dislocation of the shoulder. - Re-Assessments/Exams Free Text/Narrative Re-Assessment/Exam: 02/18/21 18:23 After lengthy discussion and situation nephew Guzman as well as his sister concluded that he likely was asleep and fell from his chair as it was reported several of his friends at stop by and found him sleeping soundly. They did not disturb him, the 1 individual was there less than 10 minutes before he used his cell phone to call for assistance. Departure - Departure Time of Disposition: 18:10 Disposition: Home, Self-Care 01 Condition: Good Clinical Impression: Cervical nerve root impingement Pain in shoulder region Qualifiers: Laterality: right Qualified Code(s): M25.511 - Pain in right shoulder - Discharge Information *PRESCRIPTION DRUG MONITORING PROGRAM REVIEWED*: Not Applicable *COPY OF PRESCRIPTION DRUG MONITORING REPORT IN PATIENT SHUN: Not Applicable Referrals: Kristy Kraft, [employer] [Primary Care Provider] - Forms: ED Department Discharge Additional Instructions: Bring the copy of the lab work and give you with to your next blood draw so they have it in comparison. It is likely that the numbness in your hand that disappeared when Guzman adjusted your neck was due to a nerve impingement. Consider therapy and/or massage for adjustment if needed. Consider obtaining life alert in the event you have a fall, specifically if you are in your shop or outside to be able to get assistance. Try obtain a recliner so when you take your naps you are less likely to fall out while you are asleep. Consider is a lift type device chair to benefit you from getting up with straining. Continue your diet eating healthy and drinking plenty of fluids. Follow-up with your provider as scheduled and continue with your chemotherapy. Sepsis Event Note (ED) - Focused Exam Vital Signs: Vital Signs Temp Pulse Resp BP Pulse Ox 02/18/21 17:42 93 16 131/80 97 02/18/21 16:45 97.5 F 95 16 122/79 97 - Problem List & Annotations (1) Pain in shoulder region SNOMED Code(s): 31970733 Code(s): M25.519 - PAIN IN UNSPECIFIED SHOULDER Status: Acute Priority: High Current Visit: Yes Qualifiers: Laterality: right Qualified Code(s): M25.511 - Pain in right shoulder (2) Cervical nerve root impingement Status: Acute Priority: High Current Visit: Yes - Problem List Review Problem List Initiated/Reviewed/Updated: Yes - Assessment/Plan Plan: Bring the copy of the lab work and give you with to your next blood draw so they have it in comparison. It is likely that the numbness in your hand that disappeared when Guzman adjusted your neck was due to a nerve impingement. Consider therapy and/or massage for adjustment if needed. Consider obtaining life alert in the event you have a fall, specifically if you are in your shop or outside to be able to get assistance. Try obtain a recliner so when you take your naps you are less likely to fall out while you are asleep. Consider is a lift type device chair to benefit you from getting up with straining. Continue your diet eating healthy and drinking plenty of fluids. Follow-up with your provider as scheduled and continue with your chemotherapy.
[2021-02-18 17:42] VITALS: BP 131/80; PULSE 93
[2021-02-18 17:42] LABS: ANION GAP 14.1 mmol/L (5-15); CHLORIDE,CL 102 mmol/L (98-107); SODIUM,NA 137 mmol/L (136-145)
--- NOTE | 2021-02-18 18:15 | CR ---
[id number] RAD/RAD Chest PA or AP 1V EXAM: SINGLE VIEW CHEST. INDICATION: TRAUMA COMPARISON: CORRELATION IS MADE WITH THE EXAM OF DECEMBER 07, 2020 FINDINGS: The lungs are clear The chest port is seen There is a loop recorder There is no pneumothorax The cardiomediastinal contour is stable IMPRESSION: NO ACUTE PROCESS Joe Anguiano MD 02/18/21 3098 Thank you for allowing us to participate in the care of your patient.
--- NOTE | 2021-02-18 18:16 | CR ---
[id number] RAD/RAD Shoulder Right 2V Min EXAM: RAD Shoulder Right 2V Min CLINICAL DATA: TRAUMA COMPARISON: No previous similar exam is available. FINDINGS: No fracture or dislocation is seen There are degenerative changes. IMPRESSION: NO FRACTURE OR DISLOCATION Joe Anguiano MD 02/18/21 1098 Thank you for allowing us to participate in the care of your patient.
== END 2021-02-18 18:15 | disposition home or self-care (01) ==
LOC: KA.ED 16:40
DX: M25.511 Pain in right shoulder (principal); G54.2 Cervical root disorders, not elsewhere classified; E11.9 Type 2 diabetes mellitus without complications; I10 Essential (primary) hypertension; N40.0 Benign prostatic hyperplasia without lower urinary tract symptoms; M10.9 Gout, unspecified; Z88.8 Allergy status to other drugs, medicaments and biological substances; Z79.899 Other long term (current) drug therapy; Z79.84 Long term (current) use of oral hypoglycemic drugs
CPT/HCPCS: 36415; 71045; 73030-RT; 80053; 82947; 85025; 99283-25; 99284